=== PATIENT | female | born 1995 | race Caucasian/White ===

== ENCOUNTER 2023-02-05 21:43 | Outpatient (REF) | payer BC, SELFPAY ==
[2023-02-10 00:06] LABS: Age Gdln ACOG Testing Note (.); IGP, rfx Aptima HPV ASCU Note (.)
== END 2023-02-05 21:44 | disposition home or self-care (01) ==
LOC: LAB 21:43
PROVIDERS: Visit Provider Physician Assistant
DX: Z01.419 Encounter for gynecological examination (general) (routine) without abnormal findings (principal)
CPT/HCPCS: G0145

== ENCOUNTER 2024-09-23 14:50 | Outpatient (REF) | payer BC, SELFPAY | END 2024-09-23 14:51 | disposition home or self-care (01) | LOC: LAB 14:50 | PROVIDERS: Visit Provider Obstetrics & Gynecology | DX: Z01.419 Encounter for gynecological examination (general) (routine) without abnormal findings (principal) | CPT/HCPCS: 87624; 88175 ==

== ENCOUNTER 2024-10-13 10:56 | Outpatient (REF) | payer BC, SELFPAY | END 2024-10-13 10:57 | disposition home or self-care (01) | LOC: LAB 10:56 | PROVIDERS: Visit Provider Obstetrics & Gynecology | DX: R87.612 Low grade squamous intraepithelial lesion on cytologic smear of cervix (LGSIL) (principal); N71.9 Inflammatory disease of uterus, unspecified | CPT/HCPCS: 88305 ==

== ENCOUNTER 2025-05-05 19:33 | Outpatient (REF) | payer BC, SELFPAY ==
--- OUTSIDE RECORDS SUMMARY | 2025-05-05 19:37 | XMS_ITS | CCD ---
Author Organization [facility] Care Team Providers Care 911 Dispatcher Name Role Phone JORGE A, DR BILLINGS Consulting Unavailable REQUEST, DR REYES LISTED Primary Care Unavaila ble JORGE A, DR BILLINGS Admitting Unavailable JORGE A, DR BILLINGS Attending Unavailable Zieber, DR Navas Consulting Unavailable JORGE A, DR BILLINGS Attending Unavailable JORGE A, DR BILLINGS Admitting Unavailable REQUEST, NONE LISTED Primary Care Unavaila ble JORGE A, DR BILLINGS Attending Unavailable JORGE A, DR BILLINGS Admitting Unavailable REQUEST, DR AMY LISTED Primary Care Unavaila ble WEST, DR GENA Martinez Consulting Unavailable JORGE A, DR BILLINGS Consulting Unavailable JORGE A, DR BILLINGS Attending Unavailable JORGE A, DR BILLINGS Admitting Unavailable JORGE A, DR BILLINGS Consulting Unavailable HEMEYER, DR RICHARDSON Primary Care Unavailable WEST, DR GENA Martinez Consulting Unavailable JORGE A, DR BILLINGS Admitting Unavailable HEMEYER, DR RICHARDSON Primary Care Unavailable JORGE A, DR BILLINGS Attending Unavailable JORGE A, DR BILLINGS Consulting Unavailable JORGE A, DR BILLINGS Attending Unavailable JORGE A, DR BILLINGS Admitting Unavailable JORGE A, DR BILLINGS Consulting Unavailable HEMEYER, DR RICHARDSON Primary Care Unavailable HEMEYER, DR RICHARDSON Referring Unavailable JORGE A, DR BILLINGS Attending Unavailable JORGE A, DR BILLINGS Admitting Unavailable REQUEST, DR REYES LISTED Primary Care Unavaila ble JORGE A, DR BILLINGS Consulting Unavailable JORGE A, DR BILLINGS Attending Unavailable REQUEST, NONE LISTED Primary Care Unavaila ble JORGE A, DR BILLINGS Admitting Unavailable JORGE A, DR BILLINGS Consulting Unavailable JORGE A, DR BILLINGS Attending Unavailable JORGE A, DR BILLINGS Admitting Unavailable REQUEST, DR NONE LISTED Primary Care Unavaila ble DAVID DAILY Consulting Unavailable JORGE A, DR BILLINGS Procedure Practitioner Unavailab le REQUEST, NONE LISTED Primary Care Unavaila ble KARASIK, DR THAO Admitting Unavailable KARASIK, DR THAO Consulting Unavailable KARASIK, DR THAO Attending Unavailable JORGE A, DR BILLINGS Attending Unavailable JORGE A, DR BILLINGS Consulting Unavailable HEMEYER, DR RICHARDSON Primary Care Unavailable JORGE A, DR BILLINGS Admitting Unavailable JORGE A, DR BILLINGS Attending Unavailable REQUEST, DR NONE LISTED Primary Care Unavaila ble KENO, DR GENA Martinez Consulting Unavailable JORGE A, DR BILLINGS Admitting Unavailable JORGE A, DR BILLINGS Consulting Unavailable JORGE A, DR BILLINGS Consulting Unavailable JORGE A, DR BILLINGS Attending Unavailable JORGE A, DR BILLINGS Admitting Unavailable REQUEST, DR NONE LISTED Primary Care Unavaila sadie Dailey MD, Kirt Hwang Primary Care Provider [phone] Kirt Dailey MD Unavailable Kirt Dailey MD Unavailable [phone] Kirt Dailey MD Primary Care Provider Kirt Dailey MD Unavailable Kirt Dailey MD Primary Care Provider Kirt Dailey MD Unavailable Awa Jules DO Attending Provider Kendal Robles PA-C Attending Provider [phone] Kirt Dailey MD Primary Care Provider Awa Jules Attending Unavailable Estrella Julesy Admitting Unavailable Kirt Dailey Primary Care Unavailable Kendal Robles Attending Unavailable Kendal Robles Admitting Unavailable AWA JULES Attending Unavailable AWA JULES Attending Unavailable KIRT DAILEY Attending Unavailable KENDAL ROBLES Attending Unavailable PAMELA POZO Attending Unavailable KIRT DAILEY Attending Unavailable Allergies Allergy ClassificationReported Allergen(s)Allergy TypeDate of OnsetReaction(s) Facility (1 source)PenicillinDrug AllergyThe [facility] Repository (20 sources)Penicillin GDrug Tggkrkw26-56-1657[facility] Medications Current Medications MedicationDrug Class(es)DatesSig (Normalized)Sig (Original)azithromycin 250 mg oral tablet (12 sources)Macrolide AntimicrobialStart: 08-14-2024 End: 06-77-1709cfbunqtdqlzo (Zithromax) 250 MG tablet Indications: Upper respiratory tract infection, unspecified type Take 2 tablets day one then 1 tablet daily 6 tablet 08/14/2024 09/23/2024 DiscontinuedStart: 01-22-2024 End: 93-20-3208psutsntbvspz (Zithromax) 250 MG tablet Indications: Bronchitis Take 2 tablets day one then 1 tabletdaily 6 tablet 01/22/2024 04/17/2024 Discontinuedcefuroxime 500 mg oral tablet (4 sources)Cephalosporin AntibacterialStart: 04-09-2025 End: 23-24-3951kqta 1 tablet by mouth in the morningcefuroxime (Ceftin) 500 MG tablet Indications: Acute non-recurrent maxillary sinusitis Take 1 tablet (500 mg) by mouth in the morning and 1 tablet (500 mg) before bedtime. Do all this for 7 days. 14 tablet 04/09/2025 04/16/2025 ActiveStart: 03-17-2024 End: 22-67-7729zkwr 1 tablet by mouth in the morningcefuroxime (Ceftin) 500 MG tablet Indications: Acute non-recurrent maxillary sinusitis Take 1 tablet (500 mg) by mouth in the morning and 1 tablet (500 mg) before bedtime. Do all this for 7 days. 14 tablet 03/17/2024 03/24/2024 Activecephalexin 500 mg oral capsule (5 sources)Cephalosporin AntibacterialStart: 01-26-2025 End: 31-62-4906epvp 1 capsule by mouth in the morning, then take 1 capsule by mouth in the evening, then take 1 capsule by mouth at bedtimecephalexin (Keflex) 500 MG capsule Indications: Mastitis Take 1 capsule (500 mg) by mouth in the mor daiana and 1 capsule (500 mg) in the evening and 1 capsule (500 mg) before bedtime. Do all this for 10 days. 30 capsule 01/26/2025 02/05/2025 Active levoFLOXacin 750 mg oral tablet (2 sources)Quinolone AntimicrobialStart: 04-17-2024 End: 03-11-4538qhxc 1 tablet by mouth once dailylevoFLOXacin (Levaquin) 750 MG tablet Indications: Bronchitis , Acute recurrent maxillary sinusitisTake 1 tablet (750 mg) by mouth Daily for 10 days 10 tablet 04/17/2024 04/27/2024 ActivevalACYclovir 1000 mg oral tablet (2 sources)Herpesvirus Nucleoside Analog DNA Polymerase Inhibitor, Herpes Simplex Virus Nucleoside Analog DNA Polymerase Inhibitor, Herpes Zoster Virus Nucleoside Analog DNA Polymerase InhibitorStart: 07-26-2023 End: 53-94-2972bcby 1 tablet by mouth in the morning, then take 1 tablet by mouth in the evening, then take 1 tablet by mouth at bedtimevalACYclovir (Valtrex) 1 g tablet Indications: Herpes zoster without complication Take 1 tablet (1,000 mg) by mouth in the morning and 1 tablet (1,000 mg) in the evening and 1 tablet (1,000 mg) before bedtime. Do all this for 7 days. 21 tablet 0 07/26/2023 08/02/2023 Active Problems Active Problems Problem ClassificationProblemDateDocumented DateEpisodic/ChronicChronic obstructive pulmonary disease and bronchiectasis (4 sources)Bronchitis; Translations: [Bronchitis, not specified as acute or chronic]58-20-1814FxmujmsdBuwthiwyhsfgm (2 sources)Generalized enlarged lymph nodes; Translations: [Generalized enlarged lymph nodes]01-89-0773KtjpqltqEhsdxozlj disorders (4 sources)Irregular menstruation, unspecified; Translations: [IRREGULAR MENSTRUATION UNSPECIFIED]Onset: 56-58-6626LxdaeclAtngccpgaupo breast conditions (7 sources)Lump in right breast; Translations: [Unspecified lump in the right breast, unspecified quadrant]Onset: 573875-46-6174CiyrjlnkRS-mdldjoy trauma to perineum and vulva (1 source)First degree perineal laceration during delivery; Translations: [FIRST DEG PERINEAL LAC DUR DELIV]Onset: 74-42-8076FlvxoibzGpfsd complications of (4 sources)Maternal care for other known or suspected poor growth, third trimester, not applicable or unspecified; Translations: [MAT CARE OTH CT FTL GRTH 3RD TM UNS]Onset: 06-02-1673KawwxpjmWlnoy complications of (5 sources)Other specified related conditions, third trimester; Translations: [OTH SPEC PREG RELATEDCOND 3RD TRI]Onset: 85-75-3963FavhkknaUcxhv and delivery including normal (14 sources)Encounter for routine follow-up; Translations: [Single live ]Onset: 51-59-4314QnylqouwHsqxd upper respiratory disease (20 sources)Allergic rhinitis; Translations: [Other allergic rhinitis]Onset: 505209-40-4025ObdyivxNcpvj upper respiratory infections (7 sources)Acute maxillary sinusitis; Translations: [Acute maxillary sinusitis, unspecified]58-41-5949VhrzkichAyeokvtc codes; unclassified (1 source)Type B blood, Rh negative; Translations: [TYPE B BLOOD RH NEGATIVE] Onset: 05-72-2559MkougejkYsyijmdw codes; unclassified (1 source)39 weeks gestation of ; Translations: [39 WEEKS GESTATION OF ]Onset: 82-30-6868MaxgpewyElqbkzdb codes; unclassified (1 source)36 weeks gestation of ; Translations: [36 WEEKS GESTATION OF ]Onset: 06-82-0257NtxdgovkPzjhurjkm and history of mental health and substance abuse codes (1 source)Personal history of nicotine dependence; Translations: [PERSONAL HISTORY OF NICOTINE DEPEND]Onset: 53-51-2157QdykmhmpPzaykwiec-related disorders (2 sources)Drug use complicating childbirth; Translations: [Cannabis use, unspecified, uncomplicated]Onset: 23-17-0717WdwmrodpFabkvmfzhfyc (1 source)CONTACT W/AND (SUSP) EXPOS COVID-19; Translations: [CONTACT W/AND (SUSP) EXPOS COVID-19]Onset: 40-82-1545Mpfwu infection (2 sources)Herpes zoster without complication; Translations: [Zoster without complications]82-40-6577Ubygrjrv Past or Other Problems Problem ClassificationProblemDateDocumented DateEpisodic/ChronicCancer of cervix (10 sources)Low grade squamous intraepithelial lesion on cervical Papanicolaou smear; Translations: [Low grade squamous intraepithelial lesion on cytologic smear of cervix (LGSIL)]Onset: 285295-06-4817WhrandnmBhuibshasr during ; abruptio placenta; placenta previa (4 sources)Low lying placenta NOS or without hemorrhage, unspecified trimester; Translations: [LOW LYING PL NOS W/O HEMORR UNS TRI]Onset: 89-53-1526Avespphz Immunizations and screening for infectious disease (1 source)Contact with and (suspected) exposure to infections with a predominantly sexual mode of transmission; Translations: [CONTCT W EXPOS INFECT SEXUAL TRNSMS]Onset: 41-52-9331WopwibwyFdwwb connective tissue disease (20 sources)Spasm of cervical paraspinous muscle; Translations: [Other muscle spasm]Onset: 962711-25-2177IihfbcfrGkpxc screening for suspected conditions (not mental disorders or infectious disease) (13 sources)Encounter for screening for diabetes mellitus; Translations: [Encounter for other specified screening]Onset: 34-92-5842Rkwqshrf Residual codes; unclassified (1 source)Unspecified blood type, Rh negative; Translations: [UNSPECIFIED BLOOD TYPE RH NEGATIVE]Onset: 48-86-0772IfuvtkxnAxitzsax codes; unclassified (1 source)9 weeks gestation of ; Translations: [9 WEEKS GESTATION OF ]Onset: 15-28-7323NqqqmimpXxwkgvnnwnl; intervertebral disc disorders; other back problems (20 sources)Neck pain; Translations: [Cervicalgia]Onset: 990421-89-0334 Episodic Results Test NameValueInterpretationReference RangeFacilityMM diagnostic mammo BI w/CAD on 31-99-9141LY diagnostic mammo BI w/CADMERCER COUNTY [facility] [address] [place] [address] Mammography Report Signed Patient: Valorie Tim MR#: [id number] : 1995 Acct:[id number] Age/Sex: 29 / F Adm Date: 02/02/25 Loc: OK Room: [facility] Attending Dr: Kendal Robles PA-C Ordering Provider: Kendal BERGER Date of Service: 02/02/25 Procedure(s): MM diagnostic mammo BI w/CAD; US breast RT limited Accession Number(s): ([id number]) MM/MM diagnostic mammo BI w/CAD: N63.10 ([id number]) US/US breast RT limited: N63.10 Copies to: Kendal Dailey MD DIAGNOSTIC BILATERAL MAMMOGRAM - FULL FIELD DIGITAL WITH TOMOSYNTHESIS/TARGETED RIGHT BREAST US CLINICAL DATA: MASTITIS RIGHT Craniocaudal and mediolateral oblique views of the () breast were obtained using low-dose digital technique. No comparisons, baseline exam. This examination was reviewed with the aid of CAD. Heterogeneously dense breasts. There are no dominant masses, typically malignant calcifications or architectural distortion. There are atherosclerotic calcifications right breast. Targeted right breast ultrasound to the periareolar region demonstrates no focal sonographic abnormality. No loculated collections. No definite skin thickening. MM/MM diagnostic mammo BI w/CAD IMPRESSION: NO MAMMOGRAPHIC EVIDENCE OR SONOGRAPHIC EVIDENCE OF MALIGNANCY. RECOMMEND CLINICAL MANAGEMENT OF REPORTED MASTITIS ROUTINE FOLLOW-UP IS RECOMMENDED IN ONE YEAR. RESULT CODE: 1 Negative DENSITY CODE: 3 (approximately 51-75% glandular) The breasts are heterogeneously dense, which may obscure small masses. FOLLOW UP: 1YR The false-negative rate of mammography is approximately 10-percent. Management of a palpable abnormality must be based on clinical grounds. Impression dictated by: Bandar Riggs M.D. 02/02/2025 8:54 AM Dictation Location: [facility] Dictated By: Bandar Riggs MD 02/02/25821 Signed By: 02/02/[address] [place] [address] Physician GroupMammography reportOrdered By: Bandar Riggs on 32-01-2333Clgpgsgqyn imaging [facility] [address] [place] [address] Mammography Report Signed Patient: Valorie Tim MR#: [id number] : 1995 Acct:[id number] Age/Sex: 29 / F Adm Date: 5 Loc: OK Room: Type: [facility] Attending Dr: Kendal Robles PA-C Ordering Provider: Kendal BERGER Date of Service: 02/02/25 Procedure(s): MM diagnostic mammo BI w/CAD Accession Number(s): ([id number]) MM/MM diagnostic mammo BI w/CAD: N63.10 Copies to: Kendal Dailey MD~ DIAGNOSTIC BILATERAL MAMMOGRAM - FULL FIELD DIGITAL WITH TOMOSYNTHESIS/TARGETED RIGHT BREAST US CLINICAL DATA: MASTITIS RIGHT Craniocaudal and mediolateral oblique views of the () breast were obtained usinglow-dose digital technique. No comparisons, baseline exam. This examination wasreviewed with the aid of CAD. Heterogeneously dense breasts. There are no dominant masses, typically malignantcalcifications or architectural distortion. There are atherosclerotic calcifications right breast. Targeted right breast ultrasound to the periareolar region demonstrates no focalsonographic abnormality. No loculated collections. No definite skin thickening. MM/MM diagnostic mammo BI w/CAD IMPRESSION: NO MAMMOGRAPHIC EVIDENCE OR SONOGRAPHIC EVIDENCE OF MALIGNANCY. RECOMMEND CLINICAL MANAGEMENT OF REPORTED MASTITIS ROUTINE FOLLOW-UP IS RECOMMENDED IN ONE YEAR. RESULT CODE: 1 Negative DENSITY CODE: 3 (approximately 51-75% glandular) The breasts are heterogeneouslydense, which may obscure small masses. FOLLOW UP: 1YR The false-negative rate of mammography is approximately 10-percent. Management of a palpable abnormality must be based on clinical grounds. Impression dictated by: Bandar Riggs M.D. 02/02/2025 8:54 AM Dictation Location: [facility] Dictated By: Bandar Riggs MD 02/02/25821 Signed By: 02/02/25 0[address] [facility] Work Phone: Colposcopyon 25-14-2012OfohaColette Marie LPN 10/14/2024 11:05 AM Colposcopy Date/Time: 10/13/2024 3:34 PM Performed by: Awa Jules DO Authorized by: Awa Jules DO Procedure location: cervix Consent: Patient questions answered: yes Risks and benefits of the procedure and its alternatives discussed: yes Consent obtained: Written Consent given by: Patient Indication: Cervical indication(s): cervical LSIL Pre-procedure: Prep solution(s): acetic acid Procedure: Colposcopy with: endocervical curettage Biopsy taken: no Cervix visibility: fully visualized Cervical impression: normal/benign Ferric subsulfate solution applied: no Tampon inserted: no Post-procedure: Patient tolerance of procedure: Patient tolerated the procedure well with no immediate complications Instructions and paperwork completed: yes Educational handouts given: noNOMS HealthcareNOWA HealthcareHCG ( test) Ql (U)on 94-57-3590Mgldybimzmwdpj and review of laboratory resultsNormalNOWA HealthcarePreg Test, UrNegativeNegativeNO [facility] CenterNOWA SarahLon 10-13-2024L Specimen: [id number] Received: 10/14/24 Status: ALEJANDRO Dedra Num: [id number] Spec Type: Surgical Subm Dr: Awa Jules Tissues: A Endocervix - Curettings (ENDOCERVICAL CURETTINGS) Procedures: Saige LEON/Daisy Bella Age/ Patient Sex Location Account Attending Physician Valorie Tim / LABELL [id number] Awa Jules SPEC NUM: [id number] RECD: 10/14/24 STATUS: ALEJANDRO BAKER NUM: [id number] DIAMOND: 10/13/24- [facility] DR: Awa Jules ENTERED: 10/14/24 [facility] DR: Sally,Lab SPEC TYPE: Surgical DEPT: PASTOR CALVILLO ENTERED BY: [id number] RECV BY: [id number] ORDERED: HE/2, Gross/Micro L4 ORDERED: HE/2, Gross/Micro L4 Pathological Diagnosis Endocervix, curettage: Fragments of proliferative endometrium with features consistent with chronic endometritis. Clinical Information Low-grade squamous intraepithelial lesion Gross Description Part A is received in formalin labeled with the patients name, date of , and ECC is a pale rivera mucoid material, admixed with feathery rod-pink tissue bits, 0.5 x 0.3 x 0.1 cm in aggregate. The specimen is filtered and entirely submitted in a single cassette. (1, ns, UA12-298 A) CPT Codes 93609 Specimen: [id number] Received: 10/14/24 Status: ALEJANDRO Baker Num: [id number] Spec Type: Surgical Subm Dr: Awa Jules Tissues: A Endocervix - Curettings (ENDOCERVICAL CURETTINGS) Procedures: HE/2, Saige/Daisy L4 Patient: Valorie Tim [id number] (Continued) Signed (signature on file) Lalo Rios MD 10/15/[address] [place] [address] Physician GroupIGP,APTIMA HPV,AGE ANNABELLELNon [id number] [facility] AC TESTINGNote.NOMS HealthcareComment on above:TESTS RESULT FLAG UNITS REF RANGE LAB Clinician Provided Cytology Information Source.............Cervix;Endocervix No. of containers..01 ThinPrep Vial Archie BACA Carol... FLAG LEGEND: L-Low Normal,H-High Normal,LL-Alert Low,HH-Alert High <-Panic Low,>-Panic High,A-Abnormal,AA-Critical Abnormal Performed at: 01 =[address] [address] Cindy Frank MD, HPV APTIMAPositiveAbnormalNegativeNOMS HealthcareComment on above:This nucleic acid amplification test detects fourteen high- risk HPV types (16,18,31,33,35,39,45,51,52,56,58,59,66,68) without differentiation. Performed at: =[address] [id number] Smelting Engineer: Cindy Frank MD, Phone: [phone] Performed at: [address] [id number] Smelting Engineer: Cindy Frank MD, Phone: [phone] IGP, APTIMA HPV, RFX 16/18,45NoteAbnormal.NOMS HealthcareComment on above:TESTS RESULT FLAG UNITS REF RANGE LAB DIAGNOSIS: [A] 02 EPITHELIAL CELL ABNORMALITY. LOW GRADE SQUAMOUS INTRAEPITHELIAL LESION (LSIL). Recommendation: [A] 02 Suggest follow up as clinically appropriate. Specimen adequacy: 02 Satisfactory for evaluation. Endocervical and/or squamous metaplastic cells (endocervical component) are present. Performed by: 02 Bronwyn Vaca, Extension Service Specialist (ASCP) Electronically si... Silvia Argueta MD, Pathologist . 02 Pathologist ICD10: 02 R87.612 Note: Note 02 The Pap smear is a screening test designed to aid in the detection of premalignant and malignant conditions of the uterine cervix. It is not a diagnostic procedure and should not be used as the sole means of detecting cervical cancer. Both false-positive and false-negative reports do occur. Test Methodology: Note 02 This liquid based ThinPrep(R) pap test was screened with the use of an image guided system. HPV Genotype Reflex Note 02 Criteria not met, HPV Genotype not performed. FLAG LEGEND: L-Low Normal,H-High Normal,LL-Alert Low,HH-Alert High <-Panic Low,>-Panic High,A-Abnormal,AA-Critical Abnormal Performed at: [address] [address] Cindy Frank MD, Interpretation and review of laboratory resultsAbnormalNOWA Healthcare BRUSH-SPATULA CERVIX ENDOCERVIX CLINISYNCNOMS HealthcareHCG ( test) Ql (U)on 89-85-7975Xffzhkiqumpplq and review of laboratory resultsNormalNOCoxHealthPreg Test, UrNegative NegativeNOMS HealthcareNOMS HealthcareUrinalysis macro (dipstick) panel (U)on 58-55-1848Eiixfpicd, UANegativeNegative - 4(70) +++ mg/dLNOMS HealthcareBlood, UAPositiveNegative - 50 Jesu/mcLNOMS HealthcareComment on above:trace-intact Clarity, UAClearNOMS HealthcareColor, UAYellowNOMS HealthcareGlucose, UANegative Negative - 2000(110) ++++ mg/dLNOMS HealthcareInterpretation and review of laboratory resultsAbnormalNOMS HealthcareKetones, UANegativeNegative - 160(16) ++++ mg/dLNOMS HealthcareLeukocytes, UANegativeNegative - 500+++ Gaudencio/mcLNOMS HealthcareNitrite, UANegativeNegative - PositiveNOMS HealthcarepH, UA5.55 - 9 NOMS HealthcareProtein, UANegativeNegative - 2000(20) ++++ mg/dLNOMS Healthcare Spec Grav, UA1.0251 - 1.03NOMS HealthcareUrobilinogen, UA0.20.2 - 12 mg/dLNOMS HealthcareNOMS HealthcareCANNABINOID (THC) CONFIRMATION, URINEon 05-20-2022 CannabinoidPositiveAbnormalThe [facility] Health CenterComment on above:Performed By: #### THCCONF #### [facility] [address] [place] [address] Dr. Shantell Dumont THC GC/MS Gaty827 ng/mLNormalCutoff=10The [facility] Health CenterComment on above:Performed By: #### THCCONF #### [facility] [address] [place] [address] Dr. Shantell Cheema AUTO DIFFon 21-81-4916FYCP #0.1 103/ulNormal0.0-0.1The [facility] Health CenterComment on above:Performed By: #### HH #### [facility] [address] [place] [address] Dr. Shantell Gutierrezsophils/100 WBC (Bld)0.3 %Normal0.2-2.0[facility] Comment on above:Performed By: #### HH #### [facility] [address] [place] [address] Dr. Shantell Casas #0.1 103/ulNormal0.0-0.7The [facility] Health CenterComment on above: Performed By: #### HH #### [facility] [address] [place] [address] Dr. Shantell Mckeonosinophils/100 WBC (Bld)0.4 %Critically low0.9-7.0The [facility] Health CenterComment on above:Performed By: #### HH #### [facility] [address] [place] [address] Dr. Shantell Mckeonrythrocyte distribution width (RBC) [Ratio]12.8 %Zxtkba88.0-15.[address] [facility] Medical CenterComment on above:Performed By: #### HH #### [facility] [address] [place] [address] Dr. Shantell DoranHematocrit (Bld) [Volume fraction]34.4 %Critically low36.0-48.0 The [facility] CenterComment on above:Performed By: #### HH #### [facility] [address] [place] [address] Dr. Shantell DoranHemoglobin (Bld) [Mass/Vol]12.0 g/jBGizxct80.0-16.0The [facility] CenterComment on above:Performed By: #### HH #### [facility] [address] [place] [address] Dr. Shantell Canela #0.05 10e3/ulCritically high0.00-0.03The [facility] Comment on above:Performed By: #### HH #### [facility] [address] [place] [address] Dr. Shantell Canela %0.3 %Normal0.0-0.5The [facility] North Health CenterComment on above: Performed By: #### HH #### [facility] [address] [place] [address] Dr. Shantell Camacho #2.4 103/ulNormal1.2-3.8The [facility] CenterComment on above:Performed By: #### HH #### [facility] [address] [place] [address] Dr. Shantell Noriegamphocytes/100 WBC (Bld)16.4 %Critically low20.5-60.0[facility] Butler Hospitalment on above:Performed By: #### HH #### [facility] [address] [place] [address] Dr. Shantell PinedaUAL DIFF REQNONormalThe [facility] Health CenterComment on above: Performed By: #### HH #### [facility] [address] [place] [address] Dr. Shantell Castaneda (RBC) [Entitic mass]29.1 kuVzosif84.7-34.0The [facility] CenterComment on above:Performed By: #### HH #### [facility] [address] [place] [address] Dr. Shantell Bridges (RBC) [Mass/Vol]34.9 g/uUUrrfhm32.9-35.2The [facility] CenterComment on above:Performed By: #### HH #### [facility] [address] [place] [address] Dr. Shantell Bridges (RBC) [Entitic vol]83.3 fUKpthbb51.0-99.0The [facility] Health CenterComment on above:Performed By: #### HH #### [facility] [facility] [address] [place] [address] Dr. Shantell Pacheco #0.7 103/ulNormal0.3-0.8The [facility] Health CenterComment on above:Performed By: #### HH #### [facility] [address] [place] [address] Dr. Shantell Santanaocytes/100 WBC (Bld)4.8 %Normal1.7-12.0[facility] Comment on above:Performed By: #### HH #### [facility] [address] [place] [address] Dr. Shantell Rudolph #11.5 103/ulCritically high1.4-6.5The [facility] Comment on above:Performed By: #### HH #### [facility] [address] [place] [address] Dr. Shantell Hendersonutrophils/100 WBC (Bld)77.8 %Critically high43.0-75.0The [facility] CenterComment on above:Performed By: #### HH #### [facility] [address] [place] [address] Dr. Shantell Marinolet mean volume (Bld) [Entitic vol]11.3 fLNormal9.5-13.5The [facility] Health CenterComment on above:Performed By: #### HH #### [facility] [address] [place] [address] Dr. Shantell DoranPLT165 103/fgTdthgi170-856Yta [facility] CenterComment on above: Performed By: #### HH #### [facility] [address] [place] [address] Dr. Shantell DoranRBC4.13 106/ulCritically low4.20-5.40The [facility] CenterComment on above:Performed By: #### HH #### [facility] [address] [place] [address] Dr. Shantell DoranWBC14.8 103/ulCritically high4.0-11.0The [facility] CenterComment on above:Performed By: #### HH #### [facility] [address] [place] [address] Dr. Shantell DeeTAL SCREENon 39-65-9103XLISO SCREENNegativeNormalThe [facility] North Health CenterComment on above:Performed By: #### FETSCRN #### [facility] [address] [place] [address] Dr. Shantell SnyderC AUTO DIFFon [id number] #0.0 103/ulNormal0.0-0.1[facility] on above:Performed By: #### THCCONF #### [facility] [address] [place] [address] Dr. Shantell DoranBasophils/100 WBC (Bld)0.4 %Normal0.2-2.0The [facility] Comment on above:Performed By: #### THCCONF #### [facility] [address] [place] [address] Dr. Shantell Casas #0.0 103/ulNormal0.0-0.7The [facility] CenterComment on above: Performed By: #### THCCONF #### [facility] [address] [place] [address] Dr. Shantell Mckeonosinophils/100 WBC (Bld)0.3 %Critically low0.9-7.0The [facility] HospitalComment on above:Performed By: #### THCCONF #### [facility] [address] [place] [address] Dr. Shantell Mckeonrythrocyte distribution width (RBC) [Ratio]12.6 %Zifpvr72.0-15.0 The [facility] HospitalComment on above:Performed By: #### THCCONF #### [facility] [address] [place] [address] Dr. Shantell DoranHematocrit (Bld) [Volume fraction]37.1 %Bkalfc45.0-48.0The [facility] HospitalComment on above:Performed By: #### THCCONF #### [facility] [address] [place] [address] Dr. Shantell DoranHemoglobin (Bld) [Mass/Vol]13.1 g/vQVdrpeb57.0-16.0The [facility] CenterComment on above:Performed By: #### THCCONF #### [facility] [address] [place] [address] Dr. Shantell Canela #0.03 10e3/ulNormal0.00-0.03The [facility] CenterComment on above:Performed By: #### THCCONF #### [facility] [address] [place] [address] Dr. Shantell Canela %0.3 %Normal0.0-0.5The [facility] Health CenterComment on above: Performed By: #### THCCONF #### [facility] [address] [place] [address] Dr. Shantell OconnellH #1.6 103/ulNormal1.2-3.8The [facility] CenterComment on above:Performed By: #### THCCONF #### [facility] [address] [place] [address] Dr. Shantell Noriegamphocytes/100 WBC (Bld)15.7 %Critically low20.5-60.0The [facility] CenterComment on above:Performed By: #### THCCONF #### [facility] [address] [place] [address] Dr. Shantell Stevens DIFF REQNONormalThe [facility] Health CenterComment on above: Performed By: #### THCCONF #### [facility] [address] [place] [address] Dr. Shantell Bridges (RBC) [Entitic mass]29.0 rdDsdaoa49.7-34.0The [facility] CenterComment on above:Performed By: #### THCCONF #### [facility] [address] [place] [address] Dr. Shantell Bridges (RBC) [Mass/Vol]35.3 g/dLCritically high29.9-35.2The [facility] CenterComment on above:Performed By: #### THCCONF #### [facility] [address] [place] [address] Dr. Shantell Bridges (RBC) [Entitic vol]82.1 gQTyrcyg74.0-99.0The [facility] CenterComment on above:Performed By: #### THCCONF #### [facility] [address] [place] [address] Dr. Shantell Pacheco #0.6 103/ulNormal0.3-0.8The [facility] CenterComment on above:Performed By: #### THCCONF #### [facility] [address] [place] [address] Dr. Shantell Santanaocytes/100 WBC (Bld)5.6 %Normal1.7-12.0[facility] Comment on above:Performed By: #### THCCONF #### [facility] [address] [place] [address] Dr. Shantell Rudolph #8.1 103/ulCritically high1.4-6.5The [facility] Comment on above:Performed By: #### THCCONF #### [facility] [address] [place] [address] Dr. Shantell Hendersonutrophils/100 WBC (Bld)77.7 %Critically high43.0-75.0The [facility] CenterComment on above:Performed By: #### THCCONF #### [facility] [address] [place] [address] Dr. Shantell DoranPlatelet mean volume (Bld) [Entitic vol]11.7 fLNormal9.5-13.5The [facility] CenterComment on above:Performed By: #### THCCONF #### [facility] [address] [place] [address] Dr. Shantell DoranPLT156 103/yfImsmqn268-448Gmn [facility] CenterComment on above: Performed By: #### THCCONF #### [facility] [address] [place] [address] Dr. Shantell DoranRBC4.52 106/ulNormal4.20-5.40The [facility] CenterCommclaren bay region on above:Performed By: #### THCCONF #### [facility] [address] [place] [address] Dr. Shantell DoranWBC10.4 103/ulNormal4.0-11.0The [facility] CenterComment on above:Performed By: #### THCCONF #### [facility] [address] [place] [address] Dr. Shantell DoranCovid-19 PCR ([facility])on 52-42-1981DFFU-CoV-2 (COVID-19) RNA JAMILA+probe Ql (Unsp spec)Not detectedNormalNOT DETECTEDThe [facility] Comment on above:Result Comment: When diagnostic testing is negative, the possibility of a false negative should be considered in the context of a patient's recent exposures and the presence of clinical signs and symptoms consistent with SARS-CoV-2. This test is not yet approved or cleared by the [place] FDA. When there are no FDA-approved or cleared tests available, and other criteria are met, FDA can make tests available under an emergency access mechanism called an Emergency Use Authorization (EUA). The EUA for this test is supported by the [place] of Health and Human Service's declaration that circumstances exist to justify the emergency use of in vitro diagnostics for the detection and/or diagnosis of the virus that causes COVID-19. This EUA will remain in effect for the duration of the COVID-19 declaration justifying emergency of IVDs, unless it is terminated or revoked by the FDA (after which the test may no longer be used).Performed By: #### THCCONF #### [facility] [address] [place] [address] Dr. Shantell DoranDRUG SCREEN RAPID (URINE)on 75-85-2088RFONgfnwybnWzbocfECQPLUOV [facility] on above:Performed By: #### DRUGRPD #### [facility] [address] [place] [address] Dr. Shantell DoranBARNegativeNormalNEGATIVESt. Mary'S Medical CenterCommclaren bay region on above: Performed By: #### DRUGRPD #### [facility] [address] [place] [address] Dr. Shantell DoranBUPNegativeNormalNEGMain Campus Medical Center on above: Performed By: #### DRUGRPD #### [facility] [address] [place] [address] Dr. Shantell DoranBZONegativermalNEGOhioHealth Nelsonville Health CenterCommclaren bay region on above: Performed By: #### DRUGRPD #### [facility] [address] [place] [address] Dr. Shantell DoranCOCNegativeNormalNEGOhioHealth Nelsonville Health CenterComment on above: Performed By: #### DRUGRPD #### [facility] [address] [place] [address] Dr. Shantell BurroughsProMedica Defiance Regional HospitalComment on above: Result Comment: AMP (Amphetamine): 500ng/mL, BAR (Barbituates): 200 ng/mL, BZO (Benzodiazepines): 150 ng/mL, BUP (Buprenorphine): 10 ng/mL, MARGARET (Cocaine): 150 ng/mL, mAMP (Methamphetamine): 500 ng/mL, MTD (Methadone): 200 ng/mL, OPI (Opiates): 100 ng/mL, OXY (Oxycodone): 100 ng/mL, PCP (Phencyclidine): 25 ng/mL, PPX (Propoxyphene): 300 ng/mL, THC (Cannabinoids): 50 ng/mL, TCA (Trycyclic Antidepressants): 300 ng/mLPerformed By: #### DRUGRPD #### [facility] [address] [address] [address] Shantell DoranDRUG CUT HEADERDRUG CLASS TEST SYSTEM CUT-OFF CONCENTRATIONS ARE FOLLOWS:NormalTriHealth Bethesda Butler Hospitalment on above:Performed By: #### DRUGRPD #### [facility] [address] [place] [address] Dr. Sahntell DoranmAMPNegativeNormalNEGATIVESt. Mary'S Medical CenterComment on above: Performed By: #### DRUGRPD #### [facility] [address] [place] [address] Dr. Shantell DoranMTDNegativeNormalNEGATIVESt. Mary'S Medical CenterComment on above: Performed By: #### DRUGRPD #### [facility] [address] [place] [address] Dr. Shantell BellINegativeNormalNEGATIVESt. Mary'S Medical CenterComment on above: Performed By: #### DRUGRPD #### [facility] [address] [place] [address] Dr. Shantell DoranOXYNegativeNormalNEGATIVESt. Mary'S Medical CenterComment on above: Performed By: #### DRUGRPD #### [facility] [address] [place] [address] Dr. Shantell DoranPCPNegativeNormalNEGATIVESt. Mary'S Medical CenterComment on above: Performed By: #### DRUGRPD #### [facility] [address] [place] [address] Dr. Shantell DoranPPXNegativeNormalNEGATIVESt. Mary'S Medical CenterComment on above: Performed By: #### DRUGRPD #### [facility] [address] [place] [address] Dr. Shantell DoranTCANegativeNormalNEGOhioHealth Nelsonville Health CenterComment on above: Performed By: #### DRUGRPD #### [facility] [address] [place] [address] Dr. Shantell DoranTHCPositiveAbnormalNEGOhioHealth Nelsonville Health CenterComment on above: Performed By: #### DRUGRPD #### [facility] [address] [place] [address] Dr. Shantell DoranTYPE AND SCREENon [id number] AND SCREENAntibody Screen POSITIVE Blood Bank Notes Probable Anti-D due to Rhig administration at 28 weeks. Further workup at Blood Bank Notes physician's request. ABO Rh Typing B Rh NegativeNoMercy Health Allen HospitalComment on above:Performed By: #### TNS #### [facility] [address] [place] [address] Dr. Shantell DoranGROUP B STREP CULTUREon 04-20-2022. agalactiae Ag Ql (Unsp spec) Culture Observations: NEGATIVE FOR GROUP B STREPTOCOCCUS.NormalThe [facility] Health CenterComment on above: Performed By: #### GBSCX #### [facility] [address] [place] [address] Dr. Shantell Velasco PREG GROWTHon [id number] PREG GROWTHEXAMINATION: US PREG GROWTH HISTORY: Small for gestational age fetus COMPARISON: No relevant comparison available. FINDINGS: Heart Rate: 138.0 bpm Amniotic Fluid Volume: 17.4 cm Number: 1.0 Position: CEPHALIC Maximum Vertical Pocket: 6.4 cm cm 1.7 cm cm 5.5 cm cm 3.9 cm cm BIOMETRY: BPD: 8.8 cm cm; 35 weeks 3 days; 40% HC: 31.4 cmcm; 35 weeks 2 days, 8% AC: 30.9 cm cm; 34 weeks 6 days, 27% FL: 6.6 cm cm; 34 weeks 0 days; 6.9 % % EFW: 2497.0 grams, 5 lbs. 8 oz., 19% FL/AC: 21.4 FL/BPD: 75.5 HC/AC: 1.0 GESTATIONAL AGE: Age by EDC: 36 weeks 0 days RONY by EDC: 05/18/2022 Age by US: 34 weeks 6 days RONY by US: 05/26/2022 IMPRESSION: Normal interval growth Electronically authenticated by: GENA NORRIS Date: 2022-04-20 17:49NormalThe Bartlett HospitalTYPE AND SCREENon [id number] AND SCREENNegativeNoMercy Health Allen HospitalComment on above:Performed By: #### TNS #### [facility] [address] [place] [address] Dr. Shantell DoranGLUCOSE - 1HRon 66-85-5764Efmismp [Mass/Vol]81 mg/pLTqtgyf31-510 [facility] on above:Performed By: #### GLU1HR #### [facility] [address] [place] [address] Dr. Shantell DoranHEMOGRAM AND PLATELon 76-48-4458Oavsyzmesw (Bld) [Volume fraction]37.6 %Jqrgid22.0-48.0[facility] on above:Performed By: #### HH #### [facility] [address] [place] [address] Dr. Shantell DoranHemoglobin (Bld) [Mass/Vol]13.0 g/kKHejbkd63.0-16.0[facility] on above:Performed By: #### HH #### [facility] [address] [place] [address] Dr. [facility]ell DoranPECONIC B[facility] (RBC) [Entitic mass]29.2 krUvlrfr11.7-34.0[facility] on above:Performed By: #### HH #### [facility] [address] [place] [address] Dr. Shantell DoranMC (RBC) [Mass/Vol]34.6 g/fFAjhofp14.9-35.2[facility] on above:Performed By: #### HH #### [facility] [address] [place] [address] Dr. Shantell DoranMCV (RBC) [Entitic vol]84.5 lTYuunnu91.0-99.0[facility] on above:Performed By: #### HH #### [facility] [address] [place] [address] Dr. Shantell DoranPLT206 103/gfYzslfx556-796Gkg [facility] on above: Performed By: #### HH #### [facility] [address] [place], [place] [address] Dr. Shantell DoranRBC4.45 106/ulNormal4.20-5.40The [facility] CenterComment on above:Performed By: #### HH #### [facility] [address] [place], [place] [address] Dr. Shantell DoranWBC10.8 103/ulNormal4.0-11.0The [facility] CenterComment on above:Performed By: #### HH #### [facility] [address] [place], [place] [address] Dr. Shantell DoranUS PREG PLACENTAon [id number] PREG PLACENTAEXAMINATION: US PREG PLACENTA HISTORY: Low lying placenta COMPARISON: Ultrasound anatomy 01/05/2022 FINDINGS: PLACENTA: Posterior, grade 0; lower margin is 3.7 cm from os. CERVIX LENGTH: 4.7 cm, closed. HEART RATE: 157 bpm OTHER: None. IMPRESSION: 1. Single live intrauterine . 2. Posterior placenta which is no longer low-lying. Electronically authenticated by: DAKOTAH WRIGHT Date: 2022-02-15 16:17NormClermont County HospitalUS PREG ANATOMY SINGLEon [id number] PREG ANATOMY SINGLE EXAMINATION: US PREG ANATOMY SINGLE HISTORY: anatomy study COMPARISON: No relevant comparison available. TECHNIQUE: Transabdominal sonographic examination was performed for obstetrical and evaluation. FINDINGS: Number: 1 Heart Rate: 143.0 bpm H.B. /min Amniotic Fluid Volume: Subjectively normal position: Breech presentation, longitudinal lie Placental Location: Posterior, grade 0. Placental edge 2 cm from the internal os Cervix Length: 4.7 cm, closed Normal structures: Cerebellum. Choroid plexus. Cisterna magna. Lateral cerebral ventricles. Orbits. Midline falx. Hard palate. 4-chamber heart. RVOT. LVOT. Stomach. Kidneys. Bladder. Umbilical cord insertion into abdomen. 3 vessel cord. Cervical spine. Thoracic spine. Lumbar spine. Sacral spine. Right upper extremity. Left upper extremity. Right lower extremity. Left lower extremity. Suboptimally seen: None. Abnormalities/Other: None BIOMETRY: BPD: 5.0 cm 21 weeks 1 days , 52% HC: 19.0 cm 21 weeks 2 days, 52% AC: 16.8 cm 21 weeks 5 days, 69% FL: 3.4 cm 20 weeks 4 days, 28% EFW:409.6 grams; 14 ounces, 58% FL/AC: 20.2 FL/BPD: 67.9 HC/AC: 1.1 GESTATIONAL AGE: Age by EDC: 21 weeks 0 days RONY by EDC: 05/18/2022 Age by current US: 21 weeks 1 days RONY by current US: 05/17/2022 IMPRESSION: Low lying placenta Otherwise normal anatomy scan *Reference: [employer] Practice Guideline for the performance of Obstetric Ultrasound Examinations, March 18, 2007. Electronically authenticated by: GENA NORRIS Date: 2022-01-05 16:10NoMercy Health Allen HospitalCHLAMYDIA/GONOCOCCUS JAMILA (SWAB/URINE/PAPon [id number] trachomatis, NAANegativeNormalNegativeSt. Mary'S Medical CenterComment on above: Performed By: #### THCCONF #### [facility] [address] [place] [address] Dr. Shantell Hendersonisseria gonorrhoeae, NAANegativeNormalNegativeThe [facility] CenterComment on above:Performed By: #### THCCONF #### [facility] [address] [place] [address] Dr. Shantell Pa ONLYon 12-09-2021..NormalThe [facility] CenterComment on above:Performed By: #### THCCONF #### [facility] [address] [place] [address] Dr. Shantell DoranDIAGNOSIS:CommentNormClermont County HospitalComment on above: Result Comment: NEGATIVE FOR INTRAEPITHELIAL LESION OR MALIGNANCY.Performed By: #### THCCONF #### [facility] [address] [place] [address] Dr. Shantell DoranMethodology:CommentNoMercy Health Allen HospitalComment on above: Result Comment: This liquid based ThinPrep(R) pap test was screened with the use of an image guided system.Performed By: #### THCCONF #### [facility] [address] [place] [address] Dr. Shantell Mi:CommentLouis Stokes Cleveland VA Medical Center on above:Result Comment: The Pap smear is a screening test designed to aid in the detection of premalignant and malignant conditions of the uterine cervix. It is not a diagnostic procedure and should not be used as the sole means of detecting cervical cancer. Both false-positive and false-negative reports do occur. .Performed By: #### THCCONF #### [facility] [address] [place] [address] Dr. Shantell DoranPerformed by:CommentLouis Stokes Cleveland VA Medical Center on above: Result Comment: Rosalinda Sultana, Extension Service Specialist (ASCP)Performed By: #### THCCONF #### [facility] [address] [place] [address] Dr. Shantell Corbin adequacy:CommentLouis Stokes Cleveland VA Medical Center on above:Result Comment: Satisfactory for evaluation. No endocervical component is identified.Performed By: #### THCCONF #### [facility] [address] [place] [address] Dr. Shantell DoranVAGINITIS/VAGINOSIS DNA PROBEon 39-97-1238Ocmafag speciesNegative NormalNegativeSt. Mary'S Medical CenterComment on above:Performed By: #### HH #### [facility] [address] [place] [address] Dr. Shantell Guillenerella vaginalisNegativeBates County Memorial HospitalalNegMcCullough-Hyde Memorial Hospital Comment on above:Performed By: #### HH #### [facility] [address] [place] [address] Dr. Shantell Beltránhomonas vaginalisNegativeNormalNegMcCullough-Hyde Memorial Hospital Comment on above:Performed By: #### HH #### [facility] [address] [place] [address] Dr. Shantell Pringle B SURFACE ANTIGEN SCREENon 42-51-9885IMfOm ScreenNegative NormalNegativeSt. Mary'S Medical CenterComment on above:Performed By: #### HH #### [facility] [address] [place] [address] Dr. Yilan ChangHEPATITIS C VIRUS AB W/ REFLEX QUANTon 80-89-3283MJZ AB0.1 s/co ratioNormal0.0-0.9The [facility] on above:Performed By: #### HCVPCRR #### [facility] [address] [place] [address] Dr. Shantell DoranInterpretation:CommentNormalThe [facility] on above:Result Comment: Negative Not infected with HCV, unless recent infection is suspected or other evidence exists to indicate HCV infection.Performed By: #### HCVPCRR #### [facility] [address] [place] [address] Dr. Shantell DoranHIV 1 AND 2 WITH REFLEXon 70-71-1553JQB Screen 4th Generation wRfxNon-ReactiveNormalNon ReactiveThe [facility] on above:Result Comment: HIV Negative HIV-1/HIV-2 antibodies and HIV-1 p24 antigen were NOT detected. There is no laboratory evidence of HIV infection.Performed By: #### THCCONF #### [facility] [address] [place] [address] Dr. Shantell DoranRPR QUANTon 49-92-1057Dwqmk Plasma Reagin, QuantNon-Reactive NormalNonRea<1:1The [facility] on above:Result Comment: Please Note: This test does not meet current guidelines for screening and diagnosis of syphilis. This test is intended for following treatment response in patients being treated for syphilis infection. To screen for syphilis infection, a reflex cascade that includes both RPR and a treponema-specific assay should be utilized, such as Treponema pallidum (Syphilis) Screening Barber (216015) or Rapid Plasma Reagin (RPR) Test With Reflex to Quantitative RPR and Confirmatory Treponema pallidum Antibodies (056705).Performed By: #### THCCONF #### [facility] [address] [place] [address] Dr. Shantell DoranRUBELLA AB IGGon 01-83-7853Inzuthp Antibodies, IgG8.63 index NormalImmune >0.99The [facility] on above:Result Comment: Non- immune <0.90 Equivocal 0.90 - 0.99 Immune >0.99Performed By: #### HH #### [facility] [address] [place] [address] Dr. Shantell Cheema AUTO DIFFon 11-61-9294HKBT #0.1 103/ulNormal0.0-0.1The [facility] CenterComment on above:Performed By: #### THCCONF #### [facility] [address] [place] [address] Dr. Shantell DoranBasophils/100 WBC (Bld)0.7 %Normal0.2-2.0The [facility] Comment on above:Performed By: #### THCCONF #### [facility] [address] [place] [address] Dr. Shantell Casas #0.0 103/ulNormal0.0-0.7The [facility] CenterComment on above: Performed By: #### THCCONF #### [facility] [address] [place] [address] Dr. Shantell Mckeonosinophils/100 WBC (Bld)0.2 %Critically low0.9-7.0The [facility] CenterComment on above:Performed By: #### THCCONF #### [facility] [address] [place] [address] Dr. Shantell Mckeonrythrocyte distribution width (RBC) [Ratio]13.1 %Vpubsp82.0-15.0 The [facility] CenterComment on above:Performed By: #### THCCONF #### [facility] [address] [place] [address] Dr. Shantell DoranHematocrit (Bld) [Volume fraction]39.7 %Xiankt43.0-48.0The [facility] CenterComment on above:Performed By: #### THCCONF #### [facility] [address] [place] [address] Dr. Shantell DoranHemoglobin (Bld) [Mass/Vol]13.1 g/wMCdfvei97.0-16.0The [facility] CenterComment on above:Performed By: #### THCCONF #### [facility] [address] [place] [address] Dr. Shantell Canela #0.03 10e3/ulNormal0.00-0.03The [facility] CenterComment on above:Performed By: #### THCCONF #### [facility] [address] [place] [address] Dr. Shantell Canela %0.4 %Normal0.0-0.5The [facility] CenterComment on above: Performed By: #### THCCONF #### [facility] [address] [place] [address] Dr. Shantell Camacho #1.9 103/ulNormal1.2-3.8The [facility] CenterComment on above:Performed By: #### THCCONF #### [facility] [address] [place] [address] Dr. Shantell Oconnellhocytes/100 WBC (Bld)21.9 %Inekxc97.5-60.0The [facility] CenterCommclaren [facility] on above:Performed By: #### THCCONF #### [facility] [address] [place] [address] Dr. Shantell PinedaUAL DIFF REQNONormalThe [facility] CenterCommclaren [facility] on above: Performed By: #### THCCONF #### [facility] [address] [place] [address] Dr. Shantell Bridges (RBC) [Entitic mass]28.3 qpVeryez99.7-34.0The [facility] CenterComment on above:Performed By: #### THCCONF #### [facility] [address] [place] [address] Dr. Shantell Bridges (RBC) [Mass/Vol]33.0 g/wHGmdvbp25.9-35.2The [facility] CenterCommclaren [facility] on above:Performed By: #### THCCONF #### [facility] [address] [place] [address] Dr. Shantell Bridges (RBC) [Entitic vol]85.7 pAUtgsdl38.0-99.0The [facility] CenterComment on above:Performed By: #### THCCONF #### [facility] [address] [address] [address] Shantell Pacheco #0.5 103/ulNormal0.3-0.8The [facility] CenterComment on above:Performed By: #### THCCONF #### [facility] [address] [place] [address] Dr. Shantell Santanaocytes/100 WBC (Bld)5.4 %Normal1.7-12.0The [facility] Comment on above:Performed By: #### THCCONF #### [facility] [address] [place] [address] Dr. Shantell Rudolph #6.0 103/ulNormal1.4-6.5The [facility] CenterComment on above:Performed By: #### THCCONF #### [facility] [address] [place] [address] Dr. Shantell Hendersonutrophils/100 WBC (Bld)71.4 %Wdgybq07.0-75.0The [facility] CenterComment on above:Performed By: #### THCCONF #### [facility] [address] [place] [address] Dr. Shantell DoranPlatelet mean volume (Bld) [Entitic vol]11.0 fLNormal9.5-13.5The [facility] CenterComment on above:Performed By: #### THCCONF #### [facility] [address] [place] [address] Dr. Shantell DoranPLT191 103/yoXqusnm654-013Gak [facility] CenterComment on above: Performed By: #### THCCONF #### [facility] [address] [place] [address] Dr. Shantell DoranRBC4.63 106/ulNormal4.20-5.40The [facility] on above:Performed By: #### THCCONF #### [facility] [address] [place] [address] Dr. Shantell DoranWBC8.5 103/ulNormal4.0-11.0The [facility] Centerment on above: Performed By: #### THCCONF #### [facility] [address] [address] [address] Shantell DoranCULTURE URINEon 21-15-1036HDULIIS URINECulture Observations: NO GROWTH.NormalSt. Mary'S Medical CenterComment on above:Performed By: #### HH #### [facility] [address] [address] [address] Shantell DoranGLYCOHEMOGLOBIN A1Con 71-44-4574RVY RECOMMENDATIONSEE BELOWNormal St. [facility] CenterCommclaren [facility] region on above:Result Comment: ADA RECOMMENDED LIMIT 4.0 - 6.0 ADA THERAPEUTIC TARGET < 7.0 ACTION SUGGESTED > 7.0Performed By: #### A1C #### [facility] [address] [place] [address] Dr. Shantell DoranGlucose [Mass/Vol]111 mg/dLNoMercy Health Allen HospitalCommclaren bay region on above:Performed By: #### A1C #### [facility] [address] [place] [address] Dr. Shantell DoranHbA1c (Bld) [Mass fraction]5.5 %Normal4.5-6.2The [facility] Health CenterComment on above:Performed By: #### A1C #### [facility] [address] [place] [address] Dr. Shantell Rodríguez BOX TEST PT SEND OUTon [id number] TO REF LAB10/28/2021 NormalUniversity [facility]als [facility] on above:Performed By: #### THCCONF #### [facility] [address] [place] [address] Dr. Shantell DoranTYPE AND SCREENon 88-93-4581AHIX AND SCREENNegativeNoMercy Health Allen HospitalComment on above:Performed By: #### HH #### [facility] [address] [place] [address] Dr. Shantell DoranUS PREG TVon 89-34-4500HF PREG TVEXAMINATION: US PREG TV HISTORY: Missed period COMPARISON: No relevant comparison available. FINDINGS: Transvaginal images Barroso intrauterine gestation Gestational sac: 3.74 cm, 9 weeks 0 days [place]-rump length: 3.69 cm, 10 weeks 4 days Yolk sac: 0.37 cm Heart rate: 167 bpm Cervix: Closed, 5.4 cm The uterus is normal in appearance, anteverted, anteflexed The ovaries are normal in appearance. Clinical age: 10 weeks 0 days Clinical RONY: 05/18/2022 Ultrasound age: 9 weeks 6 days Ultrasound RONY: 05/19/2022 IMPRESSION: Viable barroso intrauterine gestation measuring 9 weeks 6 days Electronically authenticated by: GENA NORRIS Date: 2021-10-20 16:48NoMercy Health Allen HospitalHEKAISER [facility] B SURF ABon 27-27-6564DPF B SURF AB> 1000.0Normal<10 [facility] AvistaComment on above:Result Comment: INTERPRETIVE CRITERIA: <10 mIU/mL....NONREACTIVE >=10 mIU/mL...REACTIVE . Patients receiving more than 5 mg/day of biotin may have interference in test results. A sample should be taken no sooner than eight hours after previous dose. Contact the testing laboratory for additional information.Performed By: #### HBAB3 #### [facility] [address] [place], [place] [address]EZKGK IGG ANTIBODYon 77-46-7825ZNBJB IGG ANTIBODYEquivocal NormalAdventHealth AvistaComment on above:Result Comment: INTERPRETATIVE COMMENT NEGATIVE: No IgG antibodies specific to Mumps detected. It is likely that the patient has not had a previous exposure to Mumps through infection or vaccination. Alternatively, the patient may have been exposed to Mumps but a failure to respond may indicate immunodeficiency. EQUIVOCAL:Equivocal results; obtain additional sample for retesting. POSITIVE: IgG antibody to Mumps detected. This may indicate that the patient was exposed to Mumps through infection or vaccination. The interpretation of serological tests should take into account the immunological status of the patient. Test results for patients, including immunocompromised patients, neonates, and pediatric patients, reflect their capacity to respond immunologically to the virus as well as their exposure to the pathogen. Patients treated with IVIG may demonstrate altered results in serological assays.Performed By: #### MUMPG #### [facility] [address] [place], [place] [address]YOCGRLN IGG ABon 04-98-8941SKFXZHS IGG AB118.0 IU/MLNormalAdventHealth AvistaComment on above:Result Comment: REF VALUES NON-IMMUNE: < 5 EQUIVOCAL: 5-9 IMMUNE: >=10Performed By: #### RUBIG #### [facility] [address] [place], [place] [address]MVVJBED IGG [facility] 74-09-6382PCJHOMZ IGG ABPositiveNormalUHca Florida Oak Hill HospitalComment on above:Result Comment: INTERPRETATIVE COMMENT NEGATIVE: No IgG antibodies specific to Measles detected. It is likely that the patient has not had a previous exposure to Measles through infection or vaccination. Alternatively, the patient may have been exposed to Measles but a failure to respond may indicate immunodeficiency. EQUIVOCAL:Equivocal results; obtain additional sample for retesting. POSITIVE: IgG antibody to Measles detected. This may indicate that the patient was exposed to Measles through infection or vaccination. The interpretation of serological tests should take into account the immunological status of the patient. Test results for patients, including immunocompromised patients, neonates, and pediatric patients, reflect their capacity to respond immunologically to the virus as well as their exposure to the pathogen. Patients treated with IVIG may demonstrate altered results in serological assays.Performed By: #### RUBEG #### [facility] [address] [place], [place] [address]ULYISACHT ZOSTER IGG [facility] 02-19-9658PFECVKMMI ZOSTER IGG AB PositiveNormalNEGOverton Brooks VA Medical CenterComment on above:Result Comment: INTERPRETATIVE COMMENT NEGATIVE: No IgG antibodies specific to VZV detected. It is likely that the patient has not had a previous exposure to VZV through infection or vaccination. Alternatively, the patient may have been exposed to VZV but a failure to respond may indicate immunodeficiency. EQUIVOCAL:Equivocal results; obtain additional sample for retesting. POSITIVE: IgG antibody to VZV detected. This may indicate that the patient was exposed to VZV through infection or vaccination. The interpretation of serological tests should take into account the immunological status of the patient. Test results for patients, including immunocompromised patients, neonates, and pediatric patients, reflect their capacity to respond immunologically to the virus as well as their exposure to the pathogen. Patients treated with IVIG may demonstrate altered results in serological assays.Performed By: #### VARTamG #### [facility] [address] [place] [address] Vital Signs Date TimeVital SignValuePerforming UjflycqkmTlclvunb58-27-7480 16:11-0400Body qacdtk857.7 cmEtereso Dailey MD Work Phone: [facility] ChildrenDwefvzqece43-41-0151 16:11-0400Body mass index (BMI) [Ratio]22.05 kg/y5DbpdnnKirt Dailey MD Work Phone: [facility] ChildrenKlbbfpnaor89-66-8181 16:11-0400Body xsbxzo30.77 kgKirt Dailey MD Work Phone: [facility] ChildrenMhbywoygor93-69-8968 09:18-0400Body daepza121.7 cmPamela Pozo COUNTY PROGRAM TECHNICIAN Work Phone: [phone] [place], [place] [address]Fpkcapnztb10-18-6052 09:18-0400Body mass index (BMI) [Ratio]22.05 kg/m7CmccnadvPamela Pozo COUNTY PROGRAM TECHNICIAN Work Phone: [phone] [place], [place] [address]Xamxtsxpdk63-22-6228 09:18-0400Body jfrjey08.77 kgKrlucio Pozo COUNTY PROGRAM TECHNICIAN Work Phone: [phone] [place], [place] [address]Uiswtznnjf34-25-0811 09:18-0400Diastolic blood rhyorsta82 mm[Hg]Pamela Pozo [employer] PROGRAM TECHNICIAN Work Phone: [phone] [place], [place] [address]Hypglpdevn56-78-6698 09:18-0400Systolic blood lbxgicdk469 mm[Hg]Pamela Pozo [employer] PROGRAM TECHNICIAN Work Phone: [phone] [place], [place] [address]Gygcderaal19-72-7046 13:47-0400Body .7 Venancio LING Work Phone: [phone] [place], [place] [address]Bknwtprnuk54-53-0340 13:47-0400Body mass index (BMI) [Ratio]21.59 kg/m2Kendal LING Work Phone: [address] [address]Piesdogomy36-98-9791 13:47-0400Body orlqze76.41 kgKendal LING Work Phone: [address] [address]Kdxbwzlmer72-56-1728 13:47-0400Diastolic blood ntoxwrsn69 mm[Hg]Kendal LING Work Phone: [facility] ChildrenEyzgzszjym72-42-2244 13:47-0400Systolic blood holwcqkz576 mm[Hg]Kendal LING Work Phone: [facility] ChildrenSyzdnjsqra52-39-3237 14:47-0400Body mass index (BMI) [Ratio]22.22 kg/r8Zbmpu Jorge A DO Work Phone: [facility] ChildrenNhrqshmepi10-82-5701 14:47-0400Body .32 kgCorey Jorge A DO Work Phone: [facility] ChildrenTxbpsdtfob06-91-3889 14:47-0400Diastolic blood vbtvrywn72 mm[Hg]Awa Jorge A DO Work Phone: [facility] ChildrenPnllxzlayv92-31-0495 14:47-0400Systolic blood mm[Hg]Awa Jorge A DO Work Phone: [facility] ChildrenChewawgdbj75-65-5456 08:44-0400Body mass index (BMI) [Ratio]22.34 kg/o0Mzalu Jorge A DO Work Phone: [facility] ChildrenQxyfuwipwq43-66-9477 08:44-0400Body ngrcul06.68 kgCorey Jorge A DO Work Phone: [facility] ChildrenGjjyfnqjhj36-84-0548 08:44-0400Diastolic blood mm[Hg]Awa Jorge A DO Work Phone: [facility] ChildrenUfrukpggge21-68-8118 08:44-0400Systolic blood nvmtmyku233 mm[Hg]Awa Jorge A DO Work Phone: [facility] ChildrenCfrxrlqnsm03-51-0887 16:08-0400Body afinlx845.5 Parveen Dailey MD Work Phone: [facility] ChildrenClndowkkoz48-56-9727 16:08-0400Body mass index (BMI) [Ratio]21.14 kg/c1WjpmkhKirt Dailey MD Work Phone: [facility] ChildrenMrmmwueesu80-91-2336 16:08-0400Body lusoxl83.14 kgKirt Dailey MD Work Phone: [facility] Encounters Encounter DateEncounter TypeCare ProviderFacilityStart: 04-09-2025 End: 49-43-4487zeukhmpazmMHIAXU J HEMEYERNot AvailableStart: 04-09-2025 End: 55-49-2158Morkvu outpatient visit 15 minutesKirt Dailey MD Work Phone: [facility] Karen 100 Family MedicineComment on above:Acute non-recurrent maxillary sinusitisStart: 04-09-2025 End: 80-40-3482Bxkaet Herman Dailey MD Work Phone: [facility] 100 Family MedicineStart: 04-09-2025 End: 74-21-2156Nghnfw Herman Dailey MD Work Phone: [facility] 100 Family MedicineStart: 02-02-2025 End: 49-82-6868Pmnufpj encounter procedureKendal Robles NP-[facility] Work Phone: Start: 02-02-2025 End: 98-77-8410xirevmygxrXovznv J Hemeyer MD Work Phone: [facility] Work Phone: Start: 01-29-2025 End: 06-40-6123Eegaal flowsheetPamela Pozo COUNTY PROGRAM TECHNICIAN Work Phone: noMS [facility] OBGYNStart: 01-29-2025 End: 93-69-4139Ltudwk flowsheetKristina Sánchez COUNTY PROGRAM TECHNICIAN Work Phone: noMS [facility] OBGYNStart: 01-29-2025 End: 41-32-6174bzkeooticiZCMAHMBX EBERLYNot AvailableStart: 01-29-2025 End: 35-55-9566Nwtkcb outpatient visit 15 minutesPamela Pozo COUNTY PROGRAM TECHNICIAN Work Phone: [facility] OBGYNComment on above:Mass of right breast, unspecified quadrantStart: 01-26-2025 End: 98-78-5822ltutdacvntNYT Elvia AvailableStart: 01-26-2025 End: 81-68-6881Skzdhx outpatient visit 15 minutesAmy Travis LING Work Phone: noMS [place] OBGYNComment on above:Mass of right breast, unspecified quadrant; Generalized enlarged lymph nodes; MastitisStart: 10-13-2024 End: 94-01-9109Vtstyse encounter procedureCorey Jorge A DO Work Phone: [facility] BCP OBComment on above:LGSIL on Pap smear of cervixStart: 10-13-2024 End: 88-33-3034ixrliksqumSgfty FaCleveland Clinic [facility] Work Phone: Start: 10-13-2024 End: 59-37-4847Zcifzlsn ReferredCorey Jorge A DO Work Phone: [facility]-LAB Path Spec [place] HospStart: 09-23-2024 End: 83-48-3687Fcbuap flowsheetCorey Jorge A DO Work Phone: [facility] BCP OBStart: 09-23-2024 End: 05-52-7576Ccebrx flowsheetCorey Jorge A DO Work Phone: NOLE BCP OBStart: 09-23-2024 End: 55-22-0063Nopzfxiei Result EncounterCorey Jorge A DO Work Phone: [facility] External Department UnsolicitedStart: 09-23-2024 End: 48-59-1519Ofbadrq encounter procedureCorey Jorge A DO Work Phone: [facility] Work Phone: Start: 09-23-2024 End: 32-99-2809Cgvblyfk preventive med est patient 18-39 yrsCorey Jorge A DO Work Phone: [facility] BCP OBComment on above:Well woman exam with routine gynecological examStart: 09-23-2024 End: 48-38-1870ijifjvrnerUQLYB FAZIONot AvailableStart: 08-13-2024 End: 98-46-0222Lhzfbqaer Kamila Dailey MD Work Phone: [facility] CI FM 100Start: 04-17-2024 End: 24-08-0661Lshgur flowsRoland Dailey MD Work Phone: [facility] CI FM 100Start: 04-17-2024 End: 21-59-7124Zspoqq flowsRoland Dailey MD Work Phone: [facility] CI FM 100Start: 04-17-2024 End: 11-14-6903nmmepzhbzpXTCMYT J HEMEYERNot AvailableStart: 04-17-2024 End: 30-64-3002Odxenn outpatient visit 15 minutesKirt Dailey MD Work Phone: [facility] CI FM 100Comment on above:Bronchitis (Primary Dx); Acute recurrent maxillary sinusitisStart: 03-17-2024 End: 08-51-0338Irrkeg outpatient visit 15 minutesKirt Dailey MD Work Phone: [facility] CI FM 100Comment on above:Acute non-recurrent maxillary sinusitis (Primary Dx)Start: 03-17-2024 End: 00-03-5016Lwpkil flowsRoland Dailey MD Work Phone: [facility] CI FM 100Start: 03-17-2024 End: 78-65-9287Efsasn flowsRoland Dailey MD Work Phone: [facility] CI FM 100Start: 01-22-2024 End: 71-74-1595Eiaqpr outpatient visit 15 minutesKirt Dailey MD Work Phone: [facility] CI FM 100Comment on above:Bronchitis (Primary Dx) Start: 07-26-2023 End: 17-00-3707Opejni outpatient visit 15 minutesKirt Dailey MD Work Phone: [facility] BNS FMComment on above:Herpes zoster without complication (Primary Dx)Start: 21-43-5312Ddosqf Herman Dailey MD Work Phone: [facility] FMStart: 71-27-2188Lqrqzx flowsheetKirt Dailey MD Work Phone: NOBZ [facility] FMStart: 42-60-5580vehffnhxftVK AWA JORGE A Facility:O4Cgwgz: 05-15-2022 End: 83-37-4688aaabugsviqQL AWA FAZIOFacility:G7Kroio: 05-12-2022 End: 11-91-2119Mzaosulxuk and management of inpatientDR AWA FAZIOFacility:H1 Start: 04-20-2022 End: 52-48-0003phozwvplhaFT AWA FAZIOFacility:F1Dogiq: 04-20-2022 End: 90-37-0852iznlsmtrhqQE AWA FAZIOFacility:L1Ijexo: 02-27-2022 End: 76-86-0353plcrppwoknPC AWA FAZIOFacility:P0Zympt: 02-15-2022 End: 72-56-6054ckqbdhfeajMV NONE LISTED REQUESTFacility:H7Jgaep: 01-05-2022 End: 03-95-6026hhrqjwjmcvVF GENA V WESTFacility:O6Nfpyu: 12-06-2021 End: 92-79-4292szazxxurljHP AWA FAZIOFacility:C7Dkvkl: 10-28-2021 End: 79-61-9191pvtzxghdstOM AWA FAZIOFacility:W0Doshh: 10-20-2021 End: 73-16-3104grknyxwuuzMY AWA FAZIOFacility:H1 Procedures DateProcedureProcedure DetailPerforming ClinicianStart: 18-28-6518Twbuxfwof mammographyKirt Dailey MD Work Phone: Start: 01-61-7177TSYEJTJPWCHfmpl Jorge A DO Work Phone: Start: 46-94-1106Rfbjj test visual color cmprsn methsCorey Jorge A DO Work Phone: Start: 73-86-6619Lqxef dip stick/tablet rgnt non-auto w/o micrscpCorey Jorge A DO Work Phone: Start: 20-33-7784YYO,APTIMA HPV,AGE GDLNCorey Jorge A DO Work Phone: Start: 39-47-1688Wjudveoxgga observation [Identifier] in Cervix by Cyto stainCorey Jorge A DO Work Phone: Start: 67-52-7887Vkxiwbdvaqa observation [Identifier] in Cervix by Cyto Katherin Dailey MD Work Phone: Start: 45-43-2623Fkctwjor of Products of Conception, External ApproachDR AWA FAZIOStart: 25-41-8550Xezndh Perineum Skin, External ApproachDR AWA JORGE A Plan of Treatment DateCare ActivityDetailAuthorStart: 79-80-9752KRmB/Tdap/Td Vaccines (8 - Td or Tdap)DTaP/Tdap/Td Vaccines (8 - Td or Tdap)NOM HealthcareStart: 02-06-2028 Screening for malignant neoplasm of cervixNOMS HealthcareStart: 09-24-2027 Screening for malignant neoplasm of cervixPap SmearNOMS HealthcareStart: 78-68-8475Vigtmmkam for malignant neoplasm of cervixPap SmearNOMS Healthcare Start: 09-29-2025 End: 25-59-5805Sauxmdu encounter procedureNOMS BCP OBStart: 04-20-2025 End: 38-87-9970Jkzwznn encounter procedureNOMS BCP OBStart: 84-01-5060RUXMT-19 Vaccine ( season)COVID-19 Vaccine ( season)[facility] Healthcare Start: 10-71-0639Ztswltouo vaccinationNOMS HealthcareStart: 02-02-2025 Ultrasonography of right breastUS breast [facility]: 27-81-5221NE Breast - right [facility]: 01-29-2025 End: 84-56-8031Gkavfur encounter miqhedcit65/14/2025 9:00 AM EDT [facility] [address] [place] [address] Pamela Pozo, COUNTY PROGRAM TECHNICIAN [address] [place] [address] NOMElliott [facility]ala OBGYNStart: 01-26-2025 End: 76-01-1445HC Breast - right DiagnosticRight diagnostic mammogram Imaging Routine Mass of right breast, unspecified quadrant Generalized enlarged lymph nodes Expected: 01/26/2025 (Approximate), Expires: 03/28/2026[facility] Work Phone: comment on above:Expected: 01/26/2025 (Approximate), Expires: 03/28/2026Start: 01-26-2025 End: 91-85-1871SH Breast - rightRight breast US complete Imaging Routine Mass of right breast, unspecified quadrant Expected: 01/26/2025 (Approximate), Expires: 03/28/2026[facility] HealthcareComment on above:Expected: 01/26/2025 (Approximate), Expires: 03/28/2026Start: 10-13-2024 End: 65-73-0541ZwdhuhrqszFzacbzqslf Procedures Routine LGSIL on Pap smear of cervix Expected: 10/13/2024 (Approximate), Expires: 10/13/2025[facility] Work Phone: comment on above:Expected: 10/13/2024 (Approximate), Expires: 10/13/2025Start: 09-23-2024 End: 14-44-9759Gbcrfcb encounter procedureNOMS BCP OBComment on above:Arrived Start: 03-17-2024 End: 42-81-5198Zimprys encounter kyyztoelr14/30/2024 4:15 PM EDT Office Visit [facility] [address] [address] [place] [address] Kirt Dailey MD [address] [facility] [place] [address] (Fax) ArrivedNOMS CI FM 100Comment on above:ArrivedStart: 49-25-6654Wrdjumkgr vaccinationInfluenza Vaccine (#1)[facility] HealthcareStart: 02-07-2024 End: 44-75-3467Wabpwlw encounter nniqdrkjr85/22/2024 8:30 AM EDT [facility] [address] [place] [address] Awa Jules DO [address] [place] [address] [facility] OBStart: 08-36-8888Sdwgxwwxs vaccination Influenza Vaccine (#1)[facility] HealthcareStart: 93-84-1207BKI Vaccines (1 - 3-dose SCDM series)HPV Vaccines (1 - 3-dose SCDM series)[facility] HealthcareStart: 04-26-9700Ecjwcbh of varicella vaccinationVaricella Vaccines (1 of 2 - 13+ 2- dose series)[facility] HealthcareCytology Cervical or vaginal smear or scraping study Pap Smear Pathology and Cytology Routine Well woman exam with routine gynecological exam Ordered: 09/23/2024[facility] Work Phone: comment on above:Ordered: 09/23/2024Human papilloma virus DNA [Presence] in Unspecified specimen by Probe with amplificationHPV DNA probe, amplified Microbiology Routine Well woman exam with routine gynecological exam Ordered: 09/23/2024[facility] ChildrenComment on above:Ordered: 09/23/2024 Immunizations Immunization DateImmunizationNotesCare JcergsshJfxnszis02-02-1275bnilxaejy, injectable, quadrivalent, preservative freeKirt Dailey MD Work Phone: [facility] ChildrenUxtaqwwkhw05-55-4102hytddeewc virus vaccine, unspecified formulationKirt Dailey MD Work Phone: [facility] ChildrenUhmustgwkj68-67-2691fdgdsyzbfi, tetanus toxoids and pertussis vaccineKirt Dailey MD Work Phone: [facility] ChildrenNffvgstisa02-93-0689sdvrbpr toxoid, reduced diphtheria toxoid, and acellular pertussis vaccine, adsorbedEdbuck Dailey MD Work Phone: [facility] ChildrenVkgxuvqmqg83-49-3404posaiswro B vaccine, adult dosageEdbuck Dailey MD Work Phone: [phone]-[facility] ChildrenIgoatvnjkf19-58-5282ccvbdav toxoid, reduced diphtheria toxoid, and acellular pertussis vaccine, adsorbedEdbuck Dailey MD Work Phone: [phone] [place], [place] [address]Rztnendvvy55-58-7606enohuedvc B vaccine, adult dosageKirt Dailey MD Work Phone: [phone] [place], [place] [address]Cqpdtsrksd67-42-3127txsmlhzmo B vaccine, pediatric or pediatric/adolescent dosageEdbuck Dailey MD Work Phone: [phone] [place], [place] [address]Odgaiaosqz33-78-4591ylotckink B vaccine, pediatric or pediatric/adolescent dosageEdbuck Dailey MD Work Phone: [phone] [place], [place] [address]Ktrsfwsvqt90-62-2662oijcnfjfiz and tetanus toxoids, adsorbed for pediatric useKirt Dailey MD Work Phone: [phone] [place], [place] [address]Tqnbkjegsq56-08-2548Xofznyuhyq, tetanus toxoids and acellular pertussis vaccine, and poliovirus vaccine, inactivatedEdbuck Dailey MD Work Phone: [phone] [place], [place] [address]Bozdqxiowy30-13-7778jjgwoff, mumps and rubella virus vaccineKirt Dailey MD Work Phone: [phone] [place], [place] [address]Ugxzqzeiem87-57-9076fgfujftoo poliovirus vaccine, live, oralEdbuck Dailey MD Work Phone: [phone] [place], [place] [address]Iseblixpfh29-06-1727cppzeatslm and tetanus toxoids, adsorbed for pediatric useEdbuck Dailey MD Work Phone: [phone] [place], [place] [address]Quqwgdaoyb46-39-6062amwhrwetca, tetanus toxoids and acellular pertussis vaccine, Haemophilus influenzae type b conjugate, and poliovirus vaccine, inactivated (DLoX-Khr-YQU)Edbuck Dailey MD Work Phone: [phone] [place], [place] [address]Texxjsxskb86-40-0881uxgkmcqmoew influenzae type b vaccine, conjugate unspecified formulationKirt Dailey MD Work Phone: [phone] [place], [place] [address]Xhbasxtnff15-63-4607bneczyujg B vaccine, pediatric or pediatric/adolescent dosageEdbuck Dailey MD Work Phone: [phone] [place], [place] [address]Qjdyafugqu86-23-5670uafohgj, mumps and rubella virus vaccineKirt Dailey MD Work Phone: [facility] ChildrenBktixbbkcn89-51-9515ugufjcefu poliovirus vaccine, live, oralKirt Dailey MD Work Phone: [facility] ChildrenSzyjvbfczm46-84-2683ijxvbrvktx and tetanus toxoids, adsorbed for pediatric useKirt Dailey MD Work Phone: [facility] ChildrenPfqllmtgbu71-96-3617eyhdsvinvd, tetanus toxoids and acellular pertussis vaccine, Haemophilus influenzae type b conjugate, and poliovirus vaccine, inactivated (BRsD-Cos-VNW)Kirt Dailey MD Work Phone: [facility] ChildrenXjowruddve82-63-0054nafyhwsqptd influenzae type b vaccine, conjugate unspecified formulationKirt Dailey MD Work Phone: [facility] ChildrenIhrltaveek07-19-0573iujryxwvp B vaccine, pediatric or pediatric/adolescent dosageEdbuck Dailey MD Work Phone: [facility] ChildrenAcvxtwovfg88-88-9371gqbyzvlol poliovirus vaccine, live, oralKirt Dailey MD Work Phone: [facility] ChildrenWakapsfpnv43-00-7445suvryviaeq, tetanus toxoids and acellular pertussis vaccine, Haemophilus influenzae type b conjugate, and poliovirus vaccine, inactivated (UJcM-Qmd-ZSY)Kirt Dailey MD Work Phone: [facility] ChildrenHrmnpegpap36-90-1943PMX-Ujmyrtzmwjc influenzae type b conjugate vaccineKirt Dailey MD Work Phone: [facility] ChildrenNlkwqmunfw14-16-2843nmudxbrpv B vaccine, pediatric or pediatric/adolescent dosageKirt Dailey MD Work Phone: [facility] ChildrenFswivcmrxg71-36-6789urioluokc poliovirus vaccine, live, oralKirt Dailey MD Work Phone: [facility] Payers DatePayer CategoryPayerPolicy [id number] [facility] Member Subscriber Plan / Payer (Effective 2022-Present) Name: Valorie Tim Relation to Subscriber: Self Name: Valorie Tim Payer ID: Not on file Type: Not on file Address: [address] [place] [id number] BCBS [id number] 2022-Present [phone] [address] [place] [id number] 88fv79xt-l2n7-2042-0s1m-04306[id number] 2.0.1.260246.3.579.[id number] 2.0.1.973555.3.57[id number] 2.0.1.282256.3.579.2.20225-05-6651Yjjahht0258477 2.0.1.119360.3.57[id number] 2.0.1.616655.3.579.[id number] 2.0.1.512938.3.579.[id number] 2.0.1.583996.3.579.2.17907-89-2364Wymfwja3154070 2.840.1.349653.3.579.[id number] 2.16.840.1.976018.3.579.2.03821-71-3445Hlbileh8911671 2..1.121947.3.579.2.95128-52-8015Srjskfb8058811 2.0.1.067077.3.579.2.75483-17-7420Mjctwdx0708186 2..1.172805.3.57[id number] 2..1.789502.3.57[id number] 2..1.357320.3.57[id number] 2..1.464899.3.579.2.187060-12-1917Uvjdhjm0423782 2..1.315240.3.579.2.899674-47-7007Tzmromt3640513 2..1.321996.3.579.2.542251-40-0540Cxciqij3188160 2..1.029498.3.579.2.582750-53-3672Iogx-ydi89316908973-74-7435Gkcidnt [id number] 2..1.4141[id number] 81zy7p72-3yo1-9z47-kkl9-[id number] 2..1.394247.3.579.2.656Pzoyyrg27017435 2..1.085813.3.579.2.531 Social History DateTypeDetailFacilityStart: 91-24-6008Mlxnpxk smoking status NHISEx-smokerNOMS HealthcareHistory of tobacco useCurrent smokerNOMS HealthcareHistory of tobacco useCigarette SmokerNOWA HealthcareStart: 02-08-2023 End: 81-47-7794Eergroe intakeLifetime non-drinker (finding)[facility]OMS HealthcareStart: 07-26-2023 End: 78-64-4606Vmflnhn of Social functionNOMS HealthcareStart: 07-26-2023 End: 14-69-6344Glexhmabjlj, Afraid, Rape, and Kick questionnaire [HARK]NOMS HealthcareWithin the last year, have you been afraid of your partner or ex-partner?NoNOMS HealthcareAre you now , , , , never or living with a partner?Never marriedNOMS HealthcareDo you feel stress - tense, restless, nervous, or anxious, or unable to sleep at night because yourmind is troubled all the time - these days [OSQ]To some extentNOWA HealthcareStart: 80-92-1388Ukmcslgoy71ZDEC HealthcareStart: 22-02-3876Uhlaubp Commentcaffeine: noneNOWA HealthcareStart: 09-96-2677Xoe Assigned At BirthNot on fileUTAH STATE HOSPITAL HealthcareStart: 48-22-1091Ifivpo identityIdentifies as female gender (finding)[facility] ChildrenTobacco smoking status NHISUnknown if ever smoked [facility] Work Phone: Start: 59-75-8492WcfZoexln (finding)[facility] Centertart: 29-55-3972Zvf Assigned At [facility] Hospitaltart: 46-26-7335IziNkefjhHRQY Healthcare Clinical Notes 07-26-2023 to 04-09-2025 Note Date & SnwyHxliButhexru80-76-7535 History of Present illness Narrative* Kirt Dailey MD - 04/09/2025 4:00 PM EDT Images from the original note were not included. Patient ID: Valorie Tim is a 30 y.o. female who presents for: Upper Respiratory Infection Patient complains of symptoms of a URI. Symptoms include congestion and productive cough with yellow colored sputum. Onset of symptoms was 1 week ago, and has been gradually worsening since that time. Treatment to date: none. Been exposed to sickness at work. Negative covid x1 but no influenza or rsv testing. Review of Systems No nausea vomiting diarrhea. Objective In general the patient is pleasant and in no acute distress. Bilateral ears, canals are within normal limits. Right TM is transparent and somewhat retracted. Left TM is transparent and somewhat retracted. No fluid layer. Bilateral nares demonstrate inflamed mucosa. No tenderness over the frontal sinuses. Significant tenderness over the bilateral maxillary sinuses. Oropharynx has moist mucosa there is no specific evidence of thrush. There is mild erythema of the pharynx. Shoddy bilateral anterior cervical adenopathy. No signs of respiratory distress. Patient is speaking full sentences. There are symmetrical breath sounds. No rhonchi or rales are appreciated. No wheezes. Skin is warm and dry 04/09/2025 4:11 PM 01/29/2025 9:18 AM 01/26/2025 1:47 PM 10/13/2024 2:47 PM Vitals BMI 22.05 kg/m2 22.05 kg/m2 21.59 kg/m2 22.22 kg/m2 BSA (m2) 1.78 m2 1.78 m2 1.76 m2 1.76 m2 Systolic 108 118 118 Diastolic 70 72 68 Height (in) 5' 8 5' 8 5' 8 Weight (lb) 145 145 142 144 Visit Report Report Report Report Allergies[1] Medications Ordered Prior to Encounter[2] 1. Acute non-recurrent maxillary sinusitis Acute problem. We did discuss using nasal saline rinses 4 times daily. In prescribing a new medication consideration of the following encompasses moderate decision making: the current prescriptions and supplements, the current allergies and medication intolerances, the current medical conditions, and potential drug interactions. Risks, benefits, and reason for starting their medication were discussed. The patient was given a chance to ask questions today and all questions were answered. The patient is to contact us if any other questions arise or if any problems occur with the adjustment in their medication. - cefuroxime (Ceftin) 500 MG tablet; Take 1 tablet (500 mg) by mouth in the morning and 1 tablet (500 mg) before bedtime. Do all this for 7 days. Dispense: 14 tablet; Refill: 0 Please Note: Portions of this chart may have been created using voice recognition software. Occasionally a wrong-word or sound-like substitutions may have occurred due to inherent limitations of the voice recognition software. Please read the chart carefully and recognize, using context, where the substitutions may have occurred. [1] Allergies Allergen Reactions Penicillin G Other Reaction(s): Unknown [2] No current outpatient medications on file prior to visit. No current facility-administered medications on file prior to visit. documented in this encounterShriners Hospitals for ChildrenTairfcygbg58-05-8202 History of Present illness Narrative* Pamela Pozo NP - 01/29/2025 9:00 AM EDT Reason for Appointment: Patient ID: Valorie Tim is a 29 y.o. female who presents for Follow-up (Mass on right breast) Patient presents today for reevaluation of follow up right breast pain. MEDICATIONS Current Outpatient Medications Medication Instructions cephalexin (KEFLEX) 500 mg, Oral, 3 times daily ALLERGIES Allergies Allergen Reactions Penicillin G Other Reaction(s): Unknown PROBLEMS Active Ambulatory Problems Diagnosis Date Noted Cervicalgia 11/15/2022 Cervical paraspinal muscle spasm 11/15/2022 Left cervical radiculopathy 11/15/2022 Non-seasonal allergic rhinitis 01/01/2023 LGSIL on Pap smear of cervix 10/13/2024 Resolved Ambulatory Problems Diagnosis Date Noted No Resolved Ambulatory Problems Past Medical History: Diagnosis Date Former smoker Migraines ([facility]) Underweight HISTORY PAST MEDICAL HISTORY SOCIAL HISTORY Past Medical History: Diagnosis Date Former smoker Migraines ([facility]) x2 Underweight Social History Tobacco Use Smoking status: Former Types: Cigarettes Smokeless tobacco: Not on file Substance Use Topics Alcohol use: Never Comment: caffeine: none Drug use: Never FAMILY HISTORY Family History Problem Relation Name Age of Onset Heart disease Father No Known Problems Sister Hypertension Paternal Grandmother Heart disease Paternal Grandfather No Known Problems Son No Known Problems Daughter SURGICAL HISTORY Past Surgical History: Procedure Laterality Date PAP SMEAR 12/06/2021 normal REVIEW OF SYSTEMS Review of Systems: Review of Systems Constitutional: Negative. HENT: Negative. Eyes: Negative. Respiratory: Negative. Cardiovascular: Negative. Gastrointestinal: Negative. Genitourinary: Negative. Musculoskeletal: Negative. Skin: Negative. Neurological: Negative. All other systems reviewed and are negative. Hematological: Negative. Endocrine: Negative. Allergic/Immunologic: Negative. OBJECTIVE Objective: Physical Exam Constitutional: Appearance: Normal appearance. She is well-developed. Genitourinary: Vulva normal. Genitourinary Comments: No redness, erythema, or mass noted today. Patient reports no complaints ofpain. Breasts: Breasts are soft. Right: Normal. Left: Normal. Cardiovascular: Rate and Rhythm: Normal rate and regular rhythm. Pulmonary: Effort: Pulmonary effort is normal. Breath sounds: Normal breath sounds. Abdominal: General: Bowel sounds are normal. There is no distension. Palpations: Abdomen is soft. Tenderness: There is no abdominal tenderness. There is no guarding or rebound. Musculoskeletal: General: No swelling. Normal range of motion. Right lower leg: No edema. Left lower leg: No edema. Neurological: Mental Status: She is alert and oriented to person, place, and time. Skin: General: Skin is warm and dry. Psychiatric: Mood and Affect: Mood normal. Behavior: Behavior normal. Vitals and nursing note reviewed. Exam conducted with a check writer salesperson present. Vitals: Estimated body mass index is 22.05 kg/m as calculated from the following: Height as of this encounter: 5' 8 . Weight as of this encounter: 145 lb. BP: 108/70 Patient's last menstrual period was 01/08/2025 (approximate). ASSESSMENT & PLAN ICD-10-CM 1. Mass of right breast, unspecified quadrant N63.10 Patient has scheduled diagnostic mammogram for next week. She is to continue with the antibiotic until gone. Follow up with our office after diagnostic imaging or sooner if she has any concerning symptoms. Documented by Pamela Pozo NP on behalf of: Pamela Pozo NP documented in this encounterShriners Hospitals for ChildrenVtglctojth07-95-2472 History of Present illness Narrative* ANURADHA Oconnell - 01/26/2025 1:30 PM EDT Images from the original note were not included. Reason for Appointment: Patient ID: Valorie Tim is a 29 y.o. female who presents for Breast Mass (Pt present today for a lump under right breast. Pt woke up with breast swollen, painful and w/red stripes.) Patient presents today for Lump under breast. MEDICATIONS No current outpatient medications ALLERGIES Allergies Allergen Reactions Penicillin G Other Reaction(s): Unknown PROBLEMS Active Ambulatory Problems Diagnosis Date Noted Cervicalgia 11/15/2022 Cervical paraspinal muscle spasm 11/15/2022 Left cervical radiculopathy 11/15/2022 Non-seasonal allergic rhinitis 01/01/2023 LGSIL on Pap smear of cervix 10/13/2024 Resolved Ambulatory Problems Diagnosis Date Noted No Resolved Ambulatory Problems Past Medical History: Diagnosis Date Former smoker Migraines ([facility]) Underweight HISTORY PAST MEDICAL HISTORY SOCIAL HISTORY Past Medical History: Diagnosis Date Former smoker Migraines ([facility]) x2 Underweight Social History Tobacco Use Smoking status: Former Types: Cigarettes Smokeless tobacco: Not on file Substance Use Topics Alcohol use: Never Comment: caffeine: none Drug use: Never FAMILY HISTORY Family History Problem Relation Name Age of Onset Heart disease Father No Known Problems Sister Hypertension Paternal Grandmother Heart disease Paternal Grandfather No Known Problems Son No Known Problems Daughter SURGICAL HISTORY Past Surgical History: Procedure Laterality Date PAP SMEAR 12/06/2021 normal REVIEW OF SYSTEMS Review of Systems: Review of Systems All other systems reviewed and are negative. OBJECTIVE Objective: Physical Exam Constitutional: Appearance: Normal appearance. She is normal weight. Genitourinary: Genitourinary Comments: Right breast redness, tenderness measuring 91t89zn in length and width Breasts: Right: Skin change and tenderness present. HENT: Head: Normocephalic. Cardiovascular: Rate and Rhythm: Normal rate. Pulses: Normal pulses. Pulmonary: Effort: Pulmonary effort is normal. Breath sounds: Normal breath sounds. Chest: Abdominal: Palpations: Abdomen is soft. Musculoskeletal: General: Normal range of motion. Neurological: General: No focal deficit present. Mental Status: She is alert and oriented to person, place, and time. Psychiatric: Mood and Affect: Mood normal. Behavior: Behavior normal. Thought Content: Thought content normal. Judgment: Judgment normal. Vitals and nursing note reviewed. Vitals: Estimated body mass index is 21.59 kg/m as calculated from the following: Height as of this encounter: 5' 8 . Weight as of this encounter: 142 lb. BP: 118/72 Patient's last menstrual period was 01/08/2025 (approximate). ASSESSMENT & PLAN ICD-10-CM 1. Mass of right breast, unspecified quadrant N63.10 Right diagnostic mammogram Right breast US complete 2. Generalized enlarged lymph nodes R59.1 Right diagnostic mammogram Patient presents with area of redness and tenderness to right breast which began yesterday. Patientstates she feels ill and malaise. We will start patient on keflex and order US. It symptoms worsen or do not improve with antibiotics, patient will have diagnostic mammogram ordered . Pt will follow up in office this week Documented by Sonya Gould MA on behalf of: ANURADHA Oconnell documented in this encounterShriners Hospitals for [id number] History of Present illness Narrative* Colette Marie LPN - 10/13/2024 2:30 PM EDTAssociated Order(s): Colposcopy Post-Procedure Diagnose(s): LGSIL on Pap smear of cervix Reason for Appointment: Patient ID: Valorie Tim is a 29 y.o. female who presents for Colposcopy Patient presents today for a Colposcopy appointment. MEDICATIONS No current outpatient medications ALLERGIES Allergies Allergen Reactions Penicillin G Other Reaction(s): Unknown SURGICAL HISTORY Past Surgical History: Procedure Laterality Date PAP SMEAR 12/06/2021 normal REVIEW OF SYSTEMS Review of Systems: Review of Systems Constitutional: Negative. HENT: Negative. Eyes: Negative. Respiratory: Negative. Cardiovascular: Negative. Gastrointestinal: Negative. Genitourinary: Negative. Musculoskeletal: Negative. Skin: Negative. Neurological: Negative. All other systems reviewed and are negative. Hematological: Negative. Endocrine: Negative. Allergic/Immunologic: Negative. OBJECTIVE Objective: Physical Exam Constitutional: Appearance: Normal appearance. She is well-developed. Genitourinary: Vulva normal. Cardiovascular: Rate and Rhythm: Normal rate and regular rhythm. Pulmonary: Effort: Pulmonary effort is normal. Breath sounds: Normal breath sounds. Abdominal: General: Bowel sounds are normal. There is no distension. Palpations: Abdomen is soft. Tenderness: There is no abdominal tenderness. There is no guarding or rebound. Musculoskeletal: General: No swelling. Normal range of motion. Right lower leg: No edema. Left lower leg: No edema. Neurological: Mental Status: She is alert and oriented to person, place, and time. Skin: General: Skin is warm and dry. Psychiatric: Mood and Affect: Mood normal. Behavior: Behavior normal. Vitals and nursing note reviewed. Exam conducted with a check writer salesperson present. Vitals: Estimated body mass index is 22.22 kg/m as calculated from the following: Height as of 24: 5' 7.5 . Weight as of this encounter: 144 lb. BP: 118/68 Patient's last menstrual period was 10/05/2024. ASSESSMENT & PLAN Assessment/Plan Encounter Diagnosis: ICD-10-CM 1. LGSIL on Pap smear of cervix R87.612 POCT , urine manually resulted Colposcopy Colposcopy Date/Time: 10/13/2024 3:34 PM Performed by: Awa Jules DO Authorized by: Awa Jules DO Procedure location: cervix Consent: Patient questions answered: yes Risks and benefits of the procedure and its alternatives discussed: yes Consent obtained: Written Consent given by: Patient Indication: Cervical indication(s): cervical LSIL Pre-procedure: Prep solution(s): acetic acid Procedure: Colposcopy with: endocervical curettage Biopsy taken: no Cervix visibility: fully visualized Cervical impression: normal/benign Ferric subsulfate solution applied: no Tampon inserted: no Post-procedure: Patient tolerance of procedure: Patient tolerated the procedure well with no immediate complications Instructions and paperwork completed: yes Educational handouts given: no Colposcopy: Patient is doing well and has no complaints. Pap results have been reviewed with the patient in great detail and patient voiced understanding. Patient presents today for a Colposcopy with ECC. Patient was placed in dorsal lithotomy position with feet in stirrups, a sterile speculum was placed into the vagina and the cervix was visualized. Cervix was cleansed with vinegar. Postprocedural instructions given. All if patients questions answered and she expressed understanding. Advised to call in interim with questions or concerns. Follow Up: Patient is to return in 6 months for Repeat Pap. Documented by Colette Marie LPN on behalf of: Awa Jules DO documented in this encounterJennifer Ville [id number] History of Present illness Narrative* Natividad Malloy, CLERICAL ASSOCIATE - 09/23/2024 8:30 AM EDT Reason for Appointment: Patient ID: Valorie Tim is a 29 y.o. female who presents for Well Women Visit Patient presents today for Annual Exam. MEDICATIONS No current outpatient medications ALLERGIES Allergies Allergen Reactions Penicillin G Other Reaction(s): Unknown PROBLEMS Active Ambulatory Problems Diagnosis Date Noted Cervicalgia 11/15/2022 Cervical paraspinal muscle spasm 11/15/2022 Left cervical radiculopathy 11/15/2022 Non-seasonal allergic rhinitis 01/01/2023 Resolved Ambulatory Problems Diagnosis Date Noted No Resolved Ambulatory Problems Past Medical History: Diagnosis Date Former smoker Migraines (CMS/HCC) Underweight HISTORY PAST MEDICAL HISTORY SOCIAL HISTORY Past Medical History: Diagnosis Date Former smoker Migraines (CMS/HCC) x2 Underweight Social History Tobacco Use Smoking status: Former Types: Cigarettes Smokeless tobacco: Not on file Substance Use Topics Alcohol use: Never Comment: caffeine: none Drug use: Never FAMILY HISTORY Family History Problem Relation Name Age of Onset Heart disease Father No Known Problems Sister Hypertension Paternal Grandmother Heart disease Paternal Grandfather No Known Problems Son No Known Problems Daughter SURGICAL HISTORY Past Surgical History: Procedure Laterality Date PAP SMEAR 12/06/2021 normal REVIEW OF SYSTEMS Review of Systems: Review of Systems Constitutional: Negative. HENT: Negative. Eyes: Negative. Respiratory: Negative. Cardiovascular: Negative. Gastrointestinal: Negative. Genitourinary: Negative. Musculoskeletal: Negative. Skin: Negative. Neurological: Negative. All other systems reviewed and are negative. Hematological: Negative. Endocrine: Negative. Allergic/Immunologic: Negative. OBJECTIVE Objective: Physical Exam Constitutional: Appearance: Normal appearance. She is well-developed. Genitourinary: Vulva normal. Breasts: Breasts are soft. Right: Normal. Left: Normal. Cardiovascular: Rate and Rhythm: Normal rate and regular rhythm. Pulmonary: Effort: Pulmonary effort is normal. Breath sounds: Normal breath sounds. Abdominal: General: Bowel sounds are normal. There is no distension. Palpations: Abdomen is soft. Tenderness: There is no abdominal tenderness. There is no guarding or rebound. Musculoskeletal: General: No swelling. Normal range of motion. Right lower leg: No edema. Left lower leg: No edema. Neurological: Mental Status: She is alert and oriented to person, place, and time. Skin: General: Skin is warm and dry. Psychiatric: Mood and Affect: Mood normal. Behavior: Behavior normal. Vitals and nursing note reviewed. Exam conducted with a check writer salesperson present. Vitals: Estimated body mass index is 22.34 kg/m as calculated from the following: Height as of 01/22/24: 5' 7.5 . Weight as of this encounter: 144 lb 12.8 oz. BP: 100/60 Patient's last menstrual period was 09/06/2024. ASSESSMENT & PLAN ICD-10-CM 1. Well woman exam with routine gynecological exam Z01.419 Pap Smear HPV DNA probe, amplified POCT , urine manually resulted POCT urinalysis dipstick manually resulted Annual Exam: Patient presents today for an annual exam. Patient states she is doing well and has no complaints. Pap was obtained without difficulty. Orders Placed This Encounter Procedures HPV DNA probe, amplified POCT , urine manually resulted POCT urinalysis dipstick manually resulted Follow Up: Patient is to return in one year for annual unless needed otherwise. Documented by Natividad Malloy LPN on behalf of: Awa Jules DO documented in this encounterShriners Hospitals for [id number] Telephone encounter Note* Telephone Encounter - Kirt Dailey MD - 08/14/2024 7:46 AM EST [facility] [id number] Miscellaneous Notes* Telephone Encounter - Kirt Dailey MD - 08/14/2024 7:46 AM EST Prescription sent * Telephone Encounter - Rita Lewis - 08/13/2024 4:11 PM EST Valorie called, She had [facility] in brought in yesterday. She has been dealing with similar symptomsfor about a week and a half.. Lots of drainage, sinus pain and pressure and headache. She ask for an appointment but Dr. Dailey is out today and tomorrow is full. She is asking if Dr. Dailey could send something in for her? documented in this encounterShriners Hospitals for ChildrenWylzigdmxu01-49-9753 Telephone encounter Note* Telephone Encounter - Rita Lewis - 08/13/2024 4:11 PM EST Valorie called, She had Aguilera in brought in yesterday. She has been dealing with similar symptomsfor about a week and a half.. Lots of drainage, sinus pain and pressure and headache. She ask for an appointment but Dr. Dailey is out today and tomorrow is full. She is asking if Dr. Dailey could send something in for her? [id number] History of Present illness Narrative* Kirt Dailey MD - 04/17/2024 8:00 AM EDT Images from the original note were not included. Patient ID: Valorie Tim is a 29 y.o. female who presents for: She was seen a couple of weeks ago and was treated with cefuroxime. She thought she got about 90 percent better and thought she is on the mend by the end of the antibiotic. But then shortly thereafter either rebound it or had new illness. She is having a lot of maxillary sinus pressure, postnasal drip, cough. The cough is intermittently productive and she is easily able to mobilize secretions. Nofever or chills. Review of Systems HENT: Positive for postnasal drip, sinus pressure and sinus pain. Negative for ear pain, nosebleedsand sore throat. Respiratory: Positive for shortness of breath and wheezing. Gastrointestinal: Positive for abdominal pain, diarrhea and nausea. Objective In general the patient is pleasant and in no acute distress. Appears rather tired Bilateral ears, canals are within normal limits. Right TM is transparent and somewhat retracted. Left TM is transparent and somewhat retracted. No fluid layer. Bilateral nares demonstrate inflamed mucosa. Shoddy bilateral anterior cervical adenopathy. No signs of respiratory distress. Patient is speaking full sentences. There are symmetrical breath sounds. No rhonchi or rales are appreciated. No wheezes. Skin is warm and dry Visit Vitals OB Status Having periods Smoking Status Former Allergies Allergen Reactions Penicillin G Other Reaction(s): Unknown Current Outpatient Medications on File Prior to Visit Medication Sig Dispense Refill [DISCONTINUED] azithromycin (Zithromax) 250 MG tablet Take 2 tablets day one then 1 tablet daily 6 tablet 0 No current facility-administered medications on file prior to visit. 1. Bronchitis (Primary) As noted above this is either recurrence or continuation of her previous illness. I did review and she was on cefuroxime. We discussed that this would not cover the atypical bacteria. We also discussed the possibility that she simply has a 2nd illness from when she was sick and [address] place and got exposed. We have mutually agreed to a full 10 day course instead of a 7 day course of antibiotic. I very specifically discussed tendinosis with. In prescribing a new medication consideration of the following encompasses moderate decision making: the current prescriptions and supplements, the current allergies and medication intolerances, the current medical conditions, and potential drug interactions. Risks, benefits, and reason for starting their medication were discussed. The patient was given a chance to ask questions today and all questions were answered. The patient is to contact us if any other questions arise or if any problems occur with the adjustment in their medication. - levoFLOXacin (Levaquin) 750 MG tablet; Take 1 tablet (750 mg) by mouth Daily for 10 days Dispense: 10 tablet; Refill: 0 2. Acute recurrent maxillary sinusitis I also discussed the importance of adding nasal saline several times a day. We also discussed the possibility of using saccharomyces to help counter any antibiotic associated diarrhea or C difficile Dragon supplement - levoFLOXacin (Levaquin) 750 MG tablet; Take 1 tablet (750 mg) by mouth Daily for 10 days Dispense: 10 tablet; Refill: 0 documented in this encounterSh[facility] for [id number] History of Present illness Narrative* Kirt Dailey MD - 03/17/2024 4:15 PM EDT Patient ID: Valorie Tim is a 29 y.o. female who presents for: 2 weeks cough and nasal congestion Covid negative times 2 Cough worse when laying down. Productive of greenish rivera phlegm Right maxillary and upper teeth ache Fever (felt hot) and sweats Objective In general the patient is pleasant and in no acute distress. Bilateral ears, canals are within normal limits. Right TM is transparent and somewhat retracted. Left TM is transparent and somewhat retracted. No fluid layer. Bilateral nares demonstrate inflamed mucosa. Tender over bilateral maxillary sinuses with the rightbeing greater than the left. Oropharynx has moist mucosa there is no specific evidence of thrush. There is mild erythema of the pharynx. Shoddy bilateral anterior cervical adenopathy. No signs of respiratory distress. Patient is speaking full sentences. There are symmetrical breath sounds. No rhonchi or rales are appreciated. No wheezes. Coarse breath sounds Skin is warm and dry Visit Vitals OB Status Having periods Smoking Status Former Allergies Allergen Reactions Penicillin G Other Reaction(s): Unknown Current Outpatient Medications on File Prior to Visit Medication Sig Dispense Refill azithromycin (Zithromax) 250 MG tablet Take 2 tablets day one then 1 tablet daily 6 tablet 0 No current facility-administered medications on file prior to visit. 1. Acute non-recurrent maxillary sinusitis Acute problem. Discussed the importance of using saline nasal rinses. Also discussed Sudogest 1 3 times daily as needed. - cefuroxime (Ceftin) 500 MG tablet; Take 1 tablet (500 mg) by mouth in the morning and 1 tablet (500 mg) before bedtime. Do all this for 7 days. Dispense: 14 tablet; Refill: 0 documented in this encounterShriners Hospitals for [id number] History of Present illness Narrative* Kirt Dailey MD - 01/22/2024 4:00 PM EDT Images from the original note were not included. Patient ID: Valorie Tim is a 28 y.o. female who presents for: Upper Respiratory Infection Patient complains of symptoms of a URI. Symptoms include low grade fever and non productive cough. Onset of symptoms was several days ago, and has been unchanged since that time. Treatment to date: none. Review of Systems Constitutional: Negative for chills and fever. HENT: Positive for congestion. Negative for ear pain, sinus pressure, sinus pain and sore throat. Respiratory: Positive for cough. Negative for shortness of breath and wheezing. Neurological: Positive for headaches. Negative for light-headedness. Objective In general the patient is pleasant and in no acute distress. Because of the weather and several very young children I agreed to see her underneath the carport in front of the office. It was blowing and down Poor rain. Bilateral nares demonstrate inflamed mucosa. Oropharynx has moist mucosa there is no specific evidence of thrush. There is mild erythema of the pharynx. Shoddy bilateral anterior cervical adenopathy. No signs of respiratory distress. Patient is speaking full sentences. There are Course but symmetrical breath sounds. No rhonchi or rales are appreciated. No wheezes. Skin is warm and dry Visit Vitals OB Status Having periods Smoking Status Former No visits with results within 6 Month(s) from this visit. Latest known visit with results is: No results found for any previous visit. Allergies Allergen Reactions Penicillin G Other Reaction(s): Unknown No current outpatient medications on file prior to visit. No current facility-administered medications on file prior to visit. 1. Bronchitis I do suspect the initial illness is viral in nature. However her son who is also seen today definitely has a an Pneumonia. I will be out of the office for a couple of days in the weekend will be here. I discussed with her and she would prefer an empiric antibiotic prescription which is not unreasonable in this situation.She will use Robitussin DM for symptom relief. - azithromycin (Zithromax) 250 MG tablet; Take 2 tablets day one then 1 tablet daily Dispense: 6 tablet; Refill: 0 documented in this encounterShriners Hospitals for [id number] History of Present illness Narrative* Kirt Dailey MD - 07/26/2023 3:30 PM EST Patient ID: Valorie Tim is a 28 y.o. female who presents for: Rash Patient presents for evaluation of a rash involving the back . Rash started 1 day ago. Lesions are red, and raised in texture. Rash has changed over time. Rash is painful and is pruritic. Associated symptoms: none. Patient has not had new exposures (soaps, lotions, laundry detergents, foods, medications, plants, insects or animals). Objective Along the lower cervical spine and across the region just above the scapula in a dermatomal patternis red exanthem consisting of macular papular lesions with areas of confluence. Visit Vitals OB Status Having periods Smoking Status Former Allergies Allergen Reactions Penicillin G Other Reaction(s): Unknown Current Outpatient Medications Medication Instructions valACYclovir (VALTREX) 1,000 mg, Oral, 3 times daily Assessment/Plan Diagnoses and all orders for this visit: Herpes zoster without complication - valACYclovir (Valtrex) 1 g tablet; Take 1 tablet (1,000 mg) by mouth in the morning and 1 tablet (1,000 mg) in the evening and 1 tablet (1,000 mg) before bedtime. Do all this for 7 days. Discussed the diagnosis and the pathology. Discussed contagious for chickenpox. Discussed that I would like her to get 2 doses of the medication in yet today. In prescribing a new medication consideration of the following encompasses moderate decision making: the current prescriptions and supplements, the current allergies and medication intolerances, the current medical conditions, and potential drug interactions. Drug interaction screening is reviewed and there are moderate to major severity ratings to consider during prescription drug management. Ifthe new medication is considered a controlled substance, then the OARRS and NARX scores are obtained and reviewed. Risks, benefits, and reason for starting their medication were discussed. The patient was given a chance to ask questions today and all questions were answered. The patient is to contact us, preferably by using the patient portal, or call if any other questions arise or ifany problems occur with the adjustment in their medication. [facility]* Diagnosis Herpes zoster without complication- Primary documented in this encounter [facility]* Diagnosis Acute non-recurrent maxillary sinusitis- Primary documented in [facility]* Diagnosis Bronchitis- Primary Bronchitis, not specified as acute or chronic Acute recurrent maxillary sinusitis documented [facility]* Diagnosis Bronchitis- Primary Bronchitis, not specified as acute or chronic documented in this encounter [facility]* Diagnosis Upper respiratory tract infection, unspecified type- Primary documented in [facility] encounter [facility]* Diagnosis Well woman exam with routine gynecological exam Routine gynecological examination documented in this encounter [facility]* Diagnosis LGSIL on Pap smear of cervix documented in this encounter [facility] HealthcareEvaluation noteNo assessment information availableFulton County [facility] Center Work Phone: Evaluation note* Diagnosis Mass of right breast, unspecified quadrant Generalized enlarged lymph nodes Enlargement of lymph nodes Mastitis Inflammatory disease of breast documented in this encounter [facility] Healthcare[facility]* Diagnosis Mass of right breast, unspecified quadrant documented in this encounter [facility]* Diagnosis Acute non-recurrent maxillary sinusitis documented in this encounter [facility] ChildrenReason for referral (narrative)No reason for referral information availableFulton County Health Center Work Phone: Summary Purpose Family History No Family History Records FoundNo Family History Records FoundNo Family History Records FoundNo Family History Records Found Advance Directives Advance Directive Response Recorded Date/ Time Advance Directives No January 27, 2025 4:29pm Chief Complaint and Reason for Visit Chief Complaint Admit Date N63.10 R59.1 N61.0 February 02, 2025 7: 56am Additional Source Comments INFORMATION SOURCE (unrecogn ized section and content) DATE CREATED AUTHOR 06/17/2019 [facility] DATE CREATED AUTHOR AUTHOR'S ORGANIZ ATION 06/08/2022 [facility] DATE CREATED AUTHOR AUTHOR'S ORGANIZ ATION 02/21/2025 [facility] DATE CREATED AUTHOR AUTHOR'S ORGANIZ ATION 04/11/2025 [facility] EPIC Care Teams (unrecognized sec tion and content) Team MemberRelationshipSpecialtyStart DateEnd Date Kirt Dailey MD [address] [place] [address] (Fax) PCP - GeneralFamily Medicine11/15/22 Kirt Dailey MD [address] [facility] [place] [address] (Fax) PCP - [facility]01/16/23Team MemberRelationshipSpecialtyStart DateEnd Date Kirt Dailey MD [address] [place] [address] (Fax) PCP - GeneralFamily Medicine11/15/22 Kirt Dailey MD [address] [facility] [place] [address] (Fax) PCP - [facility]01/16/23Team MemberRelationshipSpecialtyStart DateEnd Date Kirt Dailey MD [address] [place] [address] (Fax) PCP - GeneralFamily Medicine11/15/22 Kirt Dailey MD [address] [facility] [place] [address] (Fax) PCP - [facility]09/16/22Team MemberRelationshipSpecialtyStart DateEnd Date Kirt Dailey MD [address] [place] [address] (Fax) PCP - GeneralFamily Medicine11/15/22 Kirt Dailey MD [address] [place] [address] (Fax) PCP - [facility]09/16/22Team MemberRelationshipSpecialtyStart DateEnd Date Kirt Dailey MD [address] [place] [address] (Fax) PCP - GeneralFamily Medicine11/15/22 Kirt Dailey MD [address] [place] [address] (Fax) PCP - [facility]09/16/22Team MemberRelationshipSpecialtyStart DateEnd Date Kirt Dailey MD [address] [place] [address] (Fax) PCP - GeneralFamily Medicine11/15/22 Kirt Dailey MD [address] [facility] [place] [address] (Fax) PCP - [facility]09/16/22Team MemberRelationshipSpecialtyStart DateEnd Date Kirt Dailey MD [address] [facility] [place] [address] (Fax) [facility]/22 Kirt Dailey MD [address] [facility] [place] [address] (Fax) PCP - [facility]09/16/22Team MemberRelationshipSpecialtyStart DateEnd Date Kirt Dailey MD [address] [place] [address] (Fax) [facility]/15/22 Kirt Dailey MD [address] [place] [address] (Fax) PCP - [facility]09/16/22Team MemberRelationshipSpecialtyStart DateEnd Date Kirt Dailey MD [address] [place] [address] (Fax) PCP - GeneralFamily Medicine11/15/22 Kirt Dailey MD [address] [place] [address] (Fax) PCP - [facility]09/16/22Team MemberRelationshipSpecialtyStart DateEnd Date Kirt Dailey MD [address] [place] [address] (Fax) PCP - GeneralFamily Medicine11/15/22 Kirt Dailey MD [address] [place] [address] (Fax) PCP - [facility]09/16/22Team MemberRelationshipSpecialtyStart DateEnd Date Kirt Dailey MD [address] [place] [address] (Fax) PCP - Generalmily Medicine11/15/22 Kirt Dailey MD [address] [place] [address] (Fax) PCP - [facility]09/16/22 Team Status: Inactive Member Role Status Dates Awa Jules DO Attending Provider Active Start : October 13, 2024 End: October 13, 2024Team MemberRelationshipSpecialtyStart DateEnd Date Kirt Dailey MD [address] [place] [address] (Fax) PCP - GeneralFamily Medicine11/15/22 Kirt Dailey MD [address] [place] [address] (Fax) PCP - [facility]09/16/22Team MemberRelationshipSpecialtyStart DateEnd Date Kirt Dailey MD [address] [place] [address] (Fax) [facility]11/15/22 Kirt Dailey MD [address] [place] [address] (Fax) PCP - [facility]09/16/22Team MemberRelationshipSpecialtyStart DateEnd Date Kirt Dailey MD [address] [place] [address] (Fax) PCP - [facility] Medicine11/15/22 Kirt Dailey MD [address] [place] [address] (Fax) [facility] Team Status: Active Member Role Status Dates Kirt Dailey MD Primary Care Provider Active Team Status: Inactive Member Role Status Dates Kendal Robles PA-C Attending Provider Active Sta rt: February 02, 2025 End: February 02, 2025Sam Byrne Care ProviderActiveStart: February 02, 2025 End: February 02, 2025Team MemberRelationshipSpecialtyStart DateEnd Date Kirt Dailey MD [address] [place] [address] (Fax) PCP - [facility] Medicine11/15/22 Kirt Dailey MD [address] [place] [address] (Fax) PCP - [facility]09/16/22Team MemberRelationshipSpecialtyStart DateEnd Date Kirt Dailey MD [address] [place] [address] PCP - GeneralFamily Medicine11/15/22 Kirt Dailey MD [address] [facility] [address] PCP - [facility]09/16/22 Reason for Visit (unrecogniz ed section and content) ReasonCommentsURIReasonCommentsWell Women VisitReasonCommentsColposcopyReason CommentsBreast MassPt present today for a lump under right breast. Pt woke up with breast swollen, painful and w/red stripes.ReasonCommentsFollow-upMass on right breast Goals (unrecognized section and content) Goals may be documented in a n alternate sectionGoals may be documented in an alternate section FOR RECORDS PERTAINING TO PATIENTS WHO ARE OR HAVE BEEN ENROLLED IN A CHEMICAL DEPENDENCY/SUBSTANCEABUSE PROGRAM, SOME INFORMATION MAY BE OMITTED. This clinical summary was aggregated from multiple sources. Caution should be exercised in using it in the provision of clinical care. This summary normalizes information from multiple sources, and as a consequence, information in this document may materially change the coding, format and clinical context of patient data. In addition, data may be omitted in some cases. CLINICAL DECISIONS SHOULD BE BASED ON THE PRIMARY CLINICAL RECORDS. [employer] [facility]. provides no warranty or guarantee of the accuracy or completeness of information in this document.
== END 2025-05-05 19:34 | disposition home or self-care (01) ==
LOC: LAB 19:33
PROVIDERS: Visit Provider Physician Assistant
DX: R87.612 Low grade squamous intraepithelial lesion on cytologic smear of cervix (LGSIL) (principal)
CPT/HCPCS: 87624; 88175